=== PATIENT | male | born 1985 | race American Indian/Alaskan Native ===

== ENCOUNTER 2016-05-17 20:02 | Emergency (ER) | payer OTHER ==
[2016-05-17 20:34] VITALS: BP 127/87
[2016-05-17 21:28] LABS: Basophils % (Auto) 0.5 % (0.0-1.8); Eosinophils % (Auto) 3.1 % (0.0-4.3); Hematocrit 42.1 % (35.5-45.6); Hemoglobin 13.8 gm/dl (11.8-15.2); Mean Corpuscular HGB Conc 33 % (32-34); Mean Corpuscular Hemoglobin 30 pg (28-32); Mean Corpuscular Volume 90 fl (84-94); Platelet Count 297 K/mm3 (140-440); Red Blood Count 4.66 M/mm3 (3.65-5.03); Red Cell Distribution Width 13.5 % (13.2-15.2); White Blood Count 8.2 K/mm3 (4.5-11.0)
[2016-05-17 21:46] LABS: Anion Gap 16 mmol/L; Blood Urea Nitrogen 9 mg/dL (9-20); Calcium 8.8 mg/dL (8.4-10.2); Carbon Dioxide 27 mmol/L (22-30); Chloride 100.9 mmol/L (98-107); Glucose 79 mg/dL (75-100); Potassium 4.2 mmol/L (3.6-5.0); Sodium 140 mmol/L (137-145)
[2016-05-18] MEDS ORDERED: TORADOL IM ONE (00:42)
[2016-05-18] MEDS ORDERED: TYLENOL PO ONE (00:42)
--- NOTE | 2016-05-18 00:44 | Emergency Department Report ---
ED General Adult HPI - General Chief complaint: Chest Pain Stated complaint: CP/BACK PAIN/L ARM NUMBNESS Time Seen by Provider: 05/18/16 00:34 Source: patient, RN notes reviewed, old records reviewed Mode of arrival: Ambulatory Limitations: No Limitations - History of Present Illness Initial comments: This is a 30-year-old male. He is previously unknown to me. Does not have a primary care doctor. He presents to the ER complaining of chest pain and back pain. The chest pain is on the bilateral anterior chest, and involves the back. It has been present for 2-1/2 months. It increases with palpation and range of motion, and decreases with rest. He does a lot of heavy lifting for work. There is no vomiting or diaphoresis. Patient denies change in exercise tolerance. There is no lower extremity pain or swelling. No history of cocaine use. No recent trips greater than 4 hours. No recent hospitalizations. -: Gradual, week(s) Location: chest, back Quality: aching Consistency: intermittent Improves with: rest Worsens with: movement Associated Symptoms: chest pain - Related Data Previous Rx's Medication Instructions Recorded Last Taken Type Diclofenac Dr [Brayodn Pelaez] 75 mg PO Q12H #30 tablet 06/19/14 Unknown Rx ALBUTEROL Inhaler [ProAir HFA 2 puff IH QID PRN #1 inhalation 02/09/15 Unknown Rx Inhaler] Acetamin/Codeine 120-12Mg/5 ml 5 ml PO TID PRN #30 ml 02/09/15 Unknown Rx [Tylenol/Codeine] Azithromycin [Zithromax Z-DANETTE] 250 mg PO DAILY #1 pack 02/09/15 Unknown Rx Ibuprofen [Motrin] 800 mg PO Q8HR PRN #30 tablet 02/09/15 Unknown Rx Prednisone [predniSONE 10 mg 10 mg PO .TAPER #1 tab.ds.pk 02/09/15 Unknown Rx (6-Day Pack, 21 Tabs)] Ibuprofen [Motrin] 600 mg PO Q6H PRN #20 tablet 07/15/15 Unknown Rx methOCARBAMOL [Robaxin TAB] 500 mg PO BID PRN #14 tab 07/15/15 Unknown Rx traMADol [Ultram 50 MG tab] 50 mg PO Q6HR PRN #15 tablet 09/23/15 Unknown Rx Ketorolac [Toradol] 10 mg PO Q6H PRN #20 tablet 05/18/16 Unknown Rx Allergies Allergy/AdvReac Type Severity Reaction Status Date / Time No Known Allergies Allergy Verified 06/19/14 18:14 ED Review of Systems ROS: Stated complaint: CP/BACK PAIN/L ARM NUMBNESS Other details as noted in HPI Constitutional: denies: fever ENT: denies: dental pain, epistaxis, congestion Respiratory: see HPI Cardiovascular: chest pain Gastrointestinal: denies: vomiting Genitourinary: as per HPI Musculoskeletal: as per HPI, back pain Skin: denies: lesions Neurological: denies: weakness Psychiatric: as per HPI ED Past Medical Hx - Past Medical History Hx Asthma: Yes Additional medical history: chronic back pain per pt. heart palpitations - Surgical History Additional Surgical History: HERNIA REPAIR. TONSILLECTOMY AND NASAL SURGERY - Social History Smoking Status: Current Every Day Smoker Substance Use Type: None - Medications Home Medications: Home Medications Medication Instructions Recorded Confirmed Last Taken Type Diclofenac Dr [Voltaren Dr] 75 mg PO Q12H #30 tablet 06/19/14 Unknown Rx ALBUTEROL Inhaler [ProAir HFA 2 puff IH QID PRN #1 inhalation 02/09/15 Unknown Rx Inhaler] Acetamin/Codeine 120-12Mg/5 ml 5 ml PO TID PRN #30 ml 02/09/15 Unknown Rx [Tylenol/Codeine] Azithromycin [Zithromax Z-DANETTE] 250 mg PO DAILY #1 pack 02/09/15 Unknown Rx Ibuprofen [Motrin] 800 mg PO Q8HR PRN #30 tablet 02/09/15 Unknown Rx Prednisone [predniSONE 10 mg 10 mg PO .TAPER #1 tab.ds.pk 02/09/15 Unknown Rx (6-Day Pack, 21 Tabs)] Ibuprofen [Motrin] 600 mg PO Q6H PRN #20 tablet 07/15/15 Unknown Rx methOCARBAMOL [Robaxin TAB] 500 mg PO BID PRN #14 tab 07/15/15 Unknown Rx traMADol [Ultram 50 MG tab] 50 mg PO Q6HR PRN #15 tablet 09/23/15 Unknown Rx Ketorolac [Toradol] 10 mg PO Q6H PRN #20 tablet 05/18/16 Unknown Rx ED Physical Exam - General Limitations: No Limitations, Other (patient in no distress, noted to be playing on a cellular phone prior to my evaluation.) General appearance: alert, in no apparent distress - Head Head exam: Present: atraumatic, normocephalic - Eye Eye exam: Present: normal appearance, EOMI. Absent: nystagmus - ENT ENT exam: Present: normal exam, normal orophraynx, mucous membranes moist, normal external ear exam - Neck Neck exam: Present: normal inspection, full ROM. Absent: tenderness, meningismus - Respiratory Respiratory exam: Present: normal lung sounds bilaterally, chest wall tenderness. Absent: respiratory distress, wheezes, rales, rhonchi, stridor - Cardiovascular Cardiovascular Exam: Present: regular rate, normal rhythm, normal heart sounds. Absent: bradycardia, tachycardia, irregular rhythm, systolic murmur, diastolic murmur, rubs, gallop - GI/Abdominal GI/Abdominal exam: Present: soft, normal bowel sounds. Absent: distended, tenderness, guarding, rebound, rigid, pulsatile mass - Rectal Rectal exam: Present: deferred - Extremities Exam Extremities exam: Present: normal inspection, full ROM, normal capillary refill. Absent: tenderness, pedal edema, joint swelling, calf tenderness - Back Exam Back exam: Present: normal inspection, full ROM, paraspinal tenderness - Neurological Exam Neurological exam: Present: alert, oriented X3, normal gait, other (Extraocular movements intact. Tongue midline. No facial droop. Facial sensation intact to light touch in the V1, V2, V3 distribution bilaterally. 5 and 5 strength in 4 extremities.. Sensation is intact to light touch in 4 extremities.). Absent : motor sensory deficit - Psychiatric Psychiatric exam: Present: normal affect, normal mood - Skin Skin exam: Present: warm, dry, intact, normal color. Absent: rash ED Course Vital Signs 05/17/16 05/18/16 05/18/16 20:31 01:01 01:02 Temperature 98.9 F Pulse Rate 65 Respiratory 20 16 16 Rate Blood Pressure 127/87 O2 Sat by Pulse 100 Oximetry - Reevaluation(s) Reevaluation #1: 05/18/16 00:58 Differential diagnosis: Costochondritis, pneumonia, GERD, reflux, myositis, pericarditis Pneumonia, Assessment and plan: 30-year-old male with exquisitely reproducible chest wall pain in context of heavy lifting that has been present for weeks. No pulmonary embolus or DVT risk factors, low risk by well's criteria, perc negative. Low risk by ERIN score, low risk by Boggs's score, symptoms have been present for greater than 8 hours, so as per the [employer] critical policy, myocardial infarction may be excluded with 1 set of cardiac enzymes. He felt improved at the Center medical therapy. He will be discharged with symptomatic therapy. Return precautions are reviewed. History and physical do not suggest pneumonia, and given his negative troponin, I think pericarditis and myocarditis are very unlikely. ED Medical Decision Making - Lab Data Result diagrams: 05/17/16 21:11 05/17/16 21:11 Vital Signs - 24 hr 05/17/16 20:31 Temperature 98.9 F Pulse Rate 65 Respiratory 20 Rate Blood Pressure 127/87 O2 Sat by Pulse 100 Oximetry Laboratory Results - last 24 hr 05/17/16 05/17/16 21:11 21:11 WBC 8.2 RBC 4.66 Hgb 13.8 Hct 42.1 MCV 90 MCH 30 MCHC 33 RDW 13.5 Plt Count 297 Lymph % (Auto) 51.9 H [place] % (Auto) 5.0 Eos % (Auto) 3.1 Baso % (Auto) 0.5 Lymph # 4.3 [place] # 0.4 Eos # 0.3 Baso # 0.0 Seg Neutrophils % 39.5 L Seg Neutrophils # 3.2 Sodium 140 Potassium 4.2 Chloride 100.9 Carbon Dioxide 27 Anion Gap 16 BUN 9 Creatinine 0.9 Estimated GFR > 60 BUN/Creatinine Ratio 10.00 Glucose 79 Calcium 8.8 Troponin T < 0.010 - EKG Data When compared to previous EKG there are: no significant change Interpretation: no acute changes 05/18/16 01:00 sinus bradycardia, 56 bpm, normal intervals, normal axis, not morphologically consistent with STEMI, appears unchanged when compared to prior EKG from September 2015. - Radiology Data Radiology results: image reviewed interpreted by me: X-ray chest negative for acute disease. Critical care attestation.: If time is entered above; I have spent that time in minutes in the direct care of this critically ill patient, excluding procedure time. ED Disposition Clinical Impression: Chest wall pain Disposition: DISCHARGED TO HOME OR SELFCARE Is pt being admited?: No Does the pt Need Aspirin: No Condition: Stable Instructions: Costochondritis (ED) Additional Instructions: Take the pain medication as directed. If taking a pain medication, do not combine it with other anti-inflammatory medications. X-ray was initially interpreted by the ER physician as being negative. However , a final interpretation will be rendered by the radiologist in the morning. Therefore, please have a primary care doctor contact medical records department to ascertain if there are any disparities in the chest x-ray interpretation. Follow-up with the primary care doctor or museum specialist within the next week. Rest and avoid heavy lifting. Return to the ER right away with new pain , worsened pain, migration of pain, fevers or chills, intractable nausea or vomiting, inability to tolerate liquid feeds. Prescriptions: Ketorolac [Toradol] 10 mg PO Q6H PRN #20 tablet PRN Reason: Pain Referrals: PRIMARY CARE, [Primary Care Provider] - 3-5 Days GEORGE CORTÉS MD [Staff Physician] - 3-5 Days BRENT SLATER MD [Staff Physician] - 3-5 Days
--- NOTE | 2016-05-18 07:37 | XRay Report ---
CHEST 2 VIEWS INDICATION: Shortness of breath. Sharp intermittent chest pain, radiating to left arm for 2 months. Smoker, asthma, bronchitis, heart palpitations. COMPARISON: 09/23/2015. FINDINGS: PA and lateral chest radiographs demonstrate normal cardiomediastinal silhouette. Clear, well-expanded lungs. Intact bones. CONCLUSION: No acute disease in the chest. Thank you for the opportunity to participate in this patient's care.
== END 2016-05-18 01:09 | disposition home or self-care (01) ==
LOC: ED 20:02
DX: R07.89 Other chest pain (principal); G89.29 Other chronic pain; F17.200 Nicotine dependence, unspecified, uncomplicated
CPT/HCPCS: 36415; 71020; 80048; 84484; 85025; 93005; 93010; 96372; 99284; J1885

== ENCOUNTER 2016-08-09 14:00 | Emergency (ER) | payer SELFPAY ==
[2016-08-09 14:16] VITALS: BP 100/66
[2016-08-09] MEDS ORDERED: MOTRIN PO ONE (15:38)
--- NOTE | 2016-08-09 16:30 | XRay Report ---
LUMBAR SPINE THREE VIEWS: 08/09/16 14:00:00 CLINICAL: Lumbar spine tenderness. FINDINGS: Normal vertebral body height, alignment and disk spaces. The pedicles are intact. No fracture. Normal soft tissues. IMPRESSION: Normal.
== END 2016-08-09 16:47 | disposition home or self-care (01) ==
LOC: ED 14:00
DX: S39.012A Strain of muscle, fascia and tendon of lower back, initial encounter (principal); X58.XXXA Exposure to other specified factors, initial encounter; Y93.9 Activity, unspecified; Y92.89 Other specified places as the place of occurrence of the external cause; Y99.9 Unspecified external cause status
CPT/HCPCS: 72100; 99283

== ENCOUNTER 2016-12-08 22:04 | Emergency (ER) | payer SELFPAY ==
[2016-12-09] MEDS ORDERED: MOTRIN PO ONE (03:10)
--- NOTE | 2016-12-09 03:14 | Emergency Department Report ---
ED ENT HPI - General Chief complaint: Dental/Oral Stated complaint: MOUTH PAIN Time Seen by Provider: 12/09/16 02:41 Source: patient Mode of arrival: Ambulatory Limitations: No Limitations - History of Present Illness Initial comments: 31-year-old male presents with complaint of molar toothache for 2 weeks. Patient states he missed his dental clinic appointment today. Visible large cavity in tooth. Denies any pus or blood drainage from mouth, speaking in full sentences. No facial swelling denies fever chills no trismus noted drooling. MD complaint: tooth pain Onset/Timin -: week(s) Location: tooth # (17) Severity: mild Quality: aching Consistency: constant Worsens with: none Context- Dental: history of dental caries, poor dental care Associated Symptoms: toothache - Related Data Previous Rx's Medication Instructions Recorded Last Taken Type Diclofenac Dr [Voltaren Dr] 75 mg PO Q12H #30 tablet 06/19/14 Unknown Rx ALBUTEROL Inhaler [ProAir HFA 2 puff IH QID PRN #1 inhalation 02/09/15 Unknown Rx Inhaler] Acetamin/Codeine 120-12Mg/5 ml 5 ml PO TID PRN #30 ml 02/09/15 Unknown Rx [Tylenol/Codeine] Azithromycin [Zithromax Z-DANETTE] 250 mg PO DAILY #1 pack 02/09/15 Unknown Rx Prednisone [predniSONE 10 mg 10 mg PO .TAPER #1 tab.ds.pk 02/09/15 Unknown Rx (6-Day Pack, 21 Tabs)] Ibuprofen [Motrin] 600 mg PO Q6H PRN #20 tablet 07/15/15 Unknown Rx methOCARBAMOL [Robaxin TAB] 500 mg PO BID PRN #14 tab 07/15/15 Unknown Rx traMADol [Ultram 50 MG tab] 50 mg PO Q6HR PRN #15 tablet 09/23/15 Unknown Rx Ketorolac [Toradol] 10 mg PO Q6H PRN #20 tablet 05/18/16 Unknown Rx Ibuprofen [Motrin 600 MG tab] 600 mg PO Q8H PRN 7 Days 08/09/16 Unknown Rx Acetaminophen/Codeine [Tylenol 1 tab PO Q6H PRN #12 tab 12/09/16 Unknown Rx /Codeine # 3 tab] Amoxicillin [Trimox CAP] 500 mg PO Q8H #30 capsule 12/09/16 Unknown Rx Benzocaine [Orajel Liquid 20%] 1 ml MM Q6HR PRN #1 bottle 12/09/16 Unknown Rx Chlorhexidine Mouthwash [Peridex] 15 ml MM BID #1 bottle 12/09/16 Unknown Rx Ibuprofen [Motrin 800 MG tab] 800 mg PO Q8HR PRN #30 tablet 12/09/16 Unknown Rx Allergies Allergy/AdvReac Type Severity Reaction Status Date / Time No Known Allergies Allergy Verified 06/19/14 18:14 ED Dental HPI - General Chief complaint: Dental/Oral Stated complaint: MOUTH PAIN Time Seen by Provider: 12/09/16 02:41 Source: patient Mode of arrival: Ambulatory Limitations: No Limitations - Related Data Previous Rx's Medication Instructions Recorded Last Taken Type Diclofenac Dr [Voltarechavez Dr] 75 mg PO Q12H #30 tablet 06/19/14 Unknown Rx ALBUTEROL Inhaler [ProAir HFA 2 puff IH QID PRN #1 inhalation 02/09/15 Unknown Rx Inhaler] Acetamin/Codeine 120-12Mg/5 ml 5 ml PO TID PRN #30 ml 02/09/15 Unknown Rx [Tylenol/Codeine] Azithromycin [Zithromax Z-DANETTE] 250 mg PO DAILY #1 pack 02/09/15 Unknown Rx Prednisone [predniSONE 10 mg 10 mg PO .TAPER #1 tab.ds.pk 02/09/15 Unknown Rx (6-Day Pack, 21 Tabs)] Ibuprofen [Motrin] 600 mg PO Q6H PRN #20 tablet 07/15/15 Unknown Rx methOCARBAMOL [Robaxin TAB] 500 mg PO BID PRN #14 tab 07/15/15 Unknown Rx traMADol [Ultram 50 MG tab] 50 mg PO Q6HR PRN #15 tablet 09/23/15 Unknown Rx Ketorolac [Toradol] 10 mg PO Q6H PRN #20 tablet 05/18/16 Unknown Rx Ibuprofen [Motrin 600 MG tab] 600 mg PO Q8H PRN 7 Days 08/09/16 Unknown Rx Acetaminophen/Codeine [Tylenol 1 tab PO Q6H PRN #12 tab 12/09/16 Unknown Rx /Codeine # 3 tab] Amoxicillin [Trimox CAP] 500 mg PO Q8H #30 capsule 12/09/16 Unknown Rx Benzocaine [Orajel Liquid 20%] 1 ml MM Q6HR PRN #1 bottle 12/09/16 Unknown Rx Chlorhexidine Mouthwash [Peridex] 15 ml MM BID #1 bottle 12/09/16 Unknown Rx Ibuprofen [Motrin 800 MG tab] 800 mg PO Q8HR PRN #30 tablet 12/09/16 Unknown Rx Allergies Allergy/AdvReac Type Severity Reaction Status Date / Time No Known Allergies Allergy Verified 06/19/14 18:14 ED Review of Systems ROS: Stated complaint: MOUTH PAIN Other details as noted in HPI Constitutional: denies: chills, fever Eyes: denies: eye pain, eye discharge, vision change ENT: dental pain. denies: ear pain, throat pain Respiratory: denies: cough, shortness of breath, wheezing Cardiovascular: denies: chest pain, palpitations Endocrine: no symptoms reported Gastrointestinal: denies: abdominal pain, nausea, diarrhea Genitourinary: denies: urgency, dysuria Musculoskeletal: denies: back pain, joint swelling, arthralgia Skin: denies: rash, lesions Neurological: denies: headache, weakness, paresthesias Psychiatric: denies: anxiety, depression Hematological/Lymphatic: denies: easy bleeding, easy bruising ED Past Medical Hx - Past Medical History Previous Medical History?: Yes Hx Asthma: Yes Additional medical history: chronic back pain per pt. heart palpitations - Surgical History Past Surgical History?: No Additional Surgical History: HERNIA REPAIR. TONSILLECTOMY AND NASAL SURGERY - Social History Smoking Status: Current Some Day Smoker Substance Use Type: None - Medications Home Medications: Home Medications Medication Instructions Recorded Confirmed Last Taken Type Diclofenac Dr [Braydon Pelaez] 75 mg PO Q12H #30 tablet 06/19/14 Unknown Rx ALBUTEROL Inhaler [ProAir HFA 2 puff IH QID PRN #1 inhalation 02/09/15 Unknown Rx Inhaler] Acetamin/Codeine 120-12Mg/5 ml 5 ml PO TID PRN #30 ml 02/09/15 Unknown Rx [Tylenol/Codeine] Azithromycin [Zithromax Z-DANETTE] 250 mg PO DAILY #1 pack 02/09/15 Unknown Rx Prednisone [predniSONE 10 mg 10 mg PO .TAPER #1 tab.ds.pk 02/09/15 Unknown Rx (6-Day Pack, 21 Tabs)] Ibuprofen [Motrin] 600 mg PO Q6H PRN #20 tablet 07/15/15 Unknown Rx methOCARBAMOL [Robaxin TAB] 500 mg PO BID PRN #14 tab 07/15/15 Unknown Rx traMADol [Ultram 50 MG tab] 50 mg PO Q6HR PRN #15 tablet 09/23/15 Unknown Rx Ketorolac [Toradol] 10 mg PO Q6H PRN #20 tablet 05/18/16 Unknown Rx Ibuprofen [Motrin 600 MG tab] 600 mg PO Q8H PRN 7 Days 08/09/16 Unknown Rx Acetaminophen/Codeine [Tylenol 1 tab PO Q6H PRN #12 tab 12/09/16 Unknown Rx /Codeine # 3 tab] Amoxicillin [Trimox CAP] 500 mg PO Q8H #30 capsule 12/09/16 Unknown Rx Benzocaine [Orajel Liquid 20%] 1 ml MM Q6HR PRN #1 bottle 12/09/16 Unknown Rx Chlorhexidine Mouthwash [Peridex] 15 ml MM BID #1 bottle 12/09/16 Unknown Rx Ibuprofen [Motrin 800 MG tab] 800 mg PO Q8HR PRN #30 tablet 12/09/16 Unknown Rx ED Physical Exam - General Limitations: No Limitations General appearance: alert, in no apparent distress - Head Head exam: Present: atraumatic, normocephalic - Eye Eye exam: Present: normal appearance, PERRL, EOMI - ENT ENT exam: Present: mucous membranes moist - Expanded ENT Exam Expanded Teeth exam: Present: dental caries (tooth 17), fractured tooth # (17), dental tenderness # (17) 1 - Dental Tenderness (large dental cavity here) - Neck Neck exam: Present: normal inspection, full ROM - Respiratory Respiratory exam: Present: normal lung sounds bilaterally. Absent: respiratory distress - Cardiovascular Cardiovascular Exam: Present: regular rate, normal rhythm. Absent: systolic murmur, diastolic murmur, rubs, gallop - GI/Abdominal GI/Abdominal exam: Present: soft, normal bowel sounds - Rectal Rectal exam: Present: deferred - Extremities Exam Extremities exam: Present: normal inspection - Back Exam Back exam: Present: normal inspection - Neurological Exam Neurological exam: Present: alert, oriented X3 - Psychiatric Psychiatric exam: Present: normal affect, normal mood - Skin Skin exam: Present: warm, dry, intact, normal color. Absent: rash ED Course Vital Signs 12/08/16 22:35 Temperature 98.7 F Pulse Rate 64 Respiratory 18 Rate Blood Pressure 121/81 O2 Sat by Pulse 100 Oximetry ED Medical Decision Making - Medical Decision Making A/P: dental cavities, toothache, dental abscess 1- Motrin when necessary, amoxicillin ten-day course, Orajel when necessary, Peridex mouthwash daily basis, short course codeine when necessary 2- I provided patient with information for multiple dental clinics to follow up and stressed the importance of dental follow-up as he has multiple cavities that require dental fixation or instrumentation 3- no clinical signs of facial abscess, no Link's angina, no induration or cellulitis of floor of mouth or tongue 4- patient able to tolerate by mouth before discharge 5- no signs of facial infection. Advised patient that if he does not take antibiotics with follow-up with a dentist as soon as possible that a can result in potentially serious or dangerous infection to develop in jaw or face. Patient states that he understood these instructions. I advised patient to return to the ED for any persistent unrelenting nausea or vomiting fever or chills or headaches. Critical care attestation.: If time is entered above; I have spent that time in minutes in the direct care of this critically ill patient, excluding procedure time. ED Disposition Clinical Impression: Dental cavity Disposition: DC-01 TO HOME OR SELFCARE Is pt being admited?: No Does the pt Need Aspirin: No Condition: Stable Instructions: Dental Caries (ED) Prescriptions: Acetaminophen/Codeine [Tylenol /Codeine # 3 tab] 1 tab PO Q6H PRN #12 tab PRN Reason: Toothache Amoxicillin [Trimox CAP] 500 mg PO Q8H #30 capsule Benzocaine [Orajel Liquid 20%] 1 ml MM Q6HR PRN #1 bottle PRN Reason: Toothache Chlorhexidine Mouthwash [Peridex] 15 ml MM BID #1 bottle Ibuprofen [Motrin 800 MG tab] 800 mg PO Q8HR PRN #30 tablet PRN Reason: Pain Referrals: [facility] [Outside] - 3-5 Days Forms: Accompanied Note, Work/School Release Form(ED) Time of Disposition: 03:12
[2016-12-09 03:25] VITALS: BP 106/58
== END 2016-12-09 03:25 | disposition home or self-care (01) ==
LOC: ED 22:04
DX: K02.9 Dental caries, unspecified (principal); J45.909 Unspecified asthma, uncomplicated; G89.29 Other chronic pain; F17.200 Nicotine dependence, unspecified, uncomplicated; Z98.890 Other specified postprocedural states
CPT/HCPCS: 99282

== ENCOUNTER 2017-01-07 22:53 | Emergency (ER) | payer SELFPAY ==
[2017-01-08] MEDS ORDERED: MOTRIN PO ONE (07:25)
--- NOTE | 2017-01-08 07:49 | Emergency Department Report ---
ED ENT HPI - General Chief complaint: Dental/Oral Stated complaint: THROAT PAIN Time Seen by Provider: 01/08/17 07:22 Source: patient Mode of arrival: Ambulatory Limitations: No Limitations - History of Present Illness Initial comments: This is a 31-year-old male nontoxic, well nourished in appearance, no acute signs of distress presents to the ED complaining of right upper dental pain 2 days. He describes pain as aching level of 10 out of 10. Patient denies any trauma to the region. Patient denies any facial swelling, trismus, numbness, tingling, fever, chills, headache, stiff neck, nausea or vomiting. Patient denies any fever or chills. Patient denies any allergies or past medical history. Patient denies following up with a dentist. MD complaint: tooth pain -: Gradual, days(s) (2) Severity: mild Severity scale (0 -10): 10 Quality: aching Consistency: constant Improves with: none Worsens with: none Context- Dental: history of dental caries, poor dental care Associated Symptoms: gum swelling, toothache. denies: fever, cough, pain with swallowing, sore throat, tinnitus, hearing loss, discharge from ear, rhinorrhea - Related Data Previous Rx's Medication Instructions Recorded Last Taken Type Diclofenac Dr [Braydon Pelaez] 75 mg PO Q12H #30 tablet 06/19/14 Unknown Rx ALBUTEROL Inhaler [ProAir HFA 2 puff IH QID PRN #1 inhalation 02/09/15 Unknown Rx Inhaler] Acetamin/Codeine 120-12Mg/5 ml 5 ml PO TID PRN #30 ml 02/09/15 Unknown Rx [Tylenol/Codeine] Azithromycin [Zithromax Z-DANETTE] 250 mg PO DAILY #1 pack 02/09/15 Unknown Rx Prednisone [predniSONE 10 mg 10 mg PO .TAPER #1 tab.ds.pk 02/09/15 Unknown Rx (6-Day Pack, 21 Tabs)] Ibuprofen [Motrin] 600 mg PO Q6H PRN #20 tablet 07/15/15 Unknown Rx methOCARBAMOL [Robaxin TAB] 500 mg PO BID PRN #14 tab 07/15/15 Unknown Rx traMADol [Ultram 50 MG tab] 50 mg PO Q6HR PRN #15 tablet 09/23/15 Unknown Rx Ketorolac [Toradol] 10 mg PO Q6H PRN #20 tablet 05/18/16 Unknown Rx Ibuprofen [Motrin 600 MG tab] 600 mg PO Q8H PRN 7 Days 08/09/16 Unknown Rx Acetaminophen/Codeine [Tylenol 1 tab PO Q6H PRN #12 tab 12/09/16 Unknown Rx /Codeine # 3 tab] Amoxicillin [Trimox CAP] 500 mg PO Q8H #30 capsule 12/09/16 Unknown Rx Benzocaine [Orajel Liquid 20%] 1 ml MM Q6HR PRN #1 bottle 12/09/16 Unknown Rx Chlorhexidine Mouthwash [Peridex] 15 ml MM BID #1 bottle 12/09/16 Unknown Rx Ibuprofen [Motrin 800 MG tab] 800 mg PO Q8HR PRN #30 tablet 12/09/16 Unknown Rx Amoxicillin/Potassium Clav 1 each PO BID #20 tablet 01/08/17 Unknown Rx [Augmentin 875-125 Tablet] traMADol [Ultram] 50 mg PO Q6HR PRN #12 tablet 01/08/17 Unknown Rx Allergies Allergy/AdvReac Type Severity Reaction Status Date / Time No Known Allergies Allergy Verified 06/19/14 18:14 ED Dental HPI - General Chief complaint: Dental/Oral Stated complaint: THROAT PAIN Time Seen by Provider: 01/08/17 07:22 Source: patient Mode of arrival: Ambulatory Limitations: No Limitations - Related Data Previous Rx's Medication Instructions Recorded Last Taken Type Diclofenac Dr [Voltaren Dr] 75 mg PO Q12H #30 tablet 06/19/14 Unknown Rx ALBUTEROL Inhaler [ProAir HFA 2 puff IH QID PRN #1 inhalation 02/09/15 Unknown Rx Inhaler] Acetamin/Codeine 120-12Mg/5 ml 5 ml PO TID PRN #30 ml 02/09/15 Unknown Rx [Tylenol/Codeine] Azithromycin [Zithromax Z-DANETTE] 250 mg PO DAILY #1 pack 02/09/15 Unknown Rx Prednisone [predniSONE 10 mg 10 mg PO .TAPER #1 tab.ds.pk 02/09/15 Unknown Rx (6-Day Pack, 21 Tabs)] Ibuprofen [Motrin] 600 mg PO Q6H PRN #20 tablet 07/15/15 Unknown Rx methOCARBAMOL [Robaxin TAB] 500 mg PO BID PRN #14 tab 07/15/15 Unknown Rx traMADol [Ultram 50 MG tab] 50 mg PO Q6HR PRN #15 tablet 09/23/15 Unknown Rx Ketorolac [Toradol] 10 mg PO Q6H PRN #20 tablet 05/18/16 Unknown Rx Ibuprofen [Motrin 600 MG tab] 600 mg PO Q8H PRN 7 Days 08/09/16 Unknown Rx Acetaminophen/Codeine [Tylenol 1 tab PO Q6H PRN #12 tab 12/09/16 Unknown Rx /Codeine # 3 tab] Amoxicillin [Trimox CAP] 500 mg PO Q8H #30 capsule 12/09/16 Unknown Rx Benzocaine [Orajel Liquid 20%] 1 ml MM Q6HR PRN #1 bottle 12/09/16 Unknown Rx Chlorhexidine Mouthwash [Peridex] 15 ml MM BID #1 bottle 12/09/16 Unknown Rx Ibuprofen [Motrin 800 MG tab] 800 mg PO Q8HR PRN #30 tablet 12/09/16 Unknown Rx Amoxicillin/Potassium Clav 1 each PO BID #20 tablet 01/08/17 Unknown Rx [Augmentin 875-125 Tablet] traMADol [Ultram] 50 mg PO Q6HR PRN #12 tablet 01/08/17 Unknown Rx Allergies Allergy/AdvReac Type Severity Reaction Status Date / Time No Known Allergies Allergy Verified 06/19/14 18:14 ED Review of Systems ROS: Stated complaint: THROAT PAIN Other details as noted in HPI Constitutional: denies: chills, fever Eyes: denies: eye pain, eye discharge, vision change ENT: dental pain. denies: ear pain, throat pain Respiratory: denies: cough, shortness of breath, wheezing Cardiovascular: denies: chest pain, palpitations Endocrine: no symptoms reported Gastrointestinal: denies: abdominal pain, nausea, diarrhea Genitourinary: denies: urgency, dysuria Musculoskeletal: denies: back pain, joint swelling, arthralgia Skin: denies: rash, lesions Neurological: denies: headache, weakness, paresthesias Psychiatric: denies: anxiety, depression Hematological/Lymphatic: denies: easy bleeding, easy bruising ED Past Medical Hx - Past Medical History Previous Medical History?: Yes Hx Asthma: Yes Additional medical history: chronic back pain per pt. heart palpitations - Surgical History Past Surgical History?: Yes Additional Surgical History: HERNIA REPAIR. TONSILLECTOMY AND NASAL SURGERY - Social History Smoking Status: Current Every Day Smoker Substance Use Type: Alcohol - Medications Home Medications: Home Medications Medication Instructions Recorded Confirmed Last Taken Type Diclofenac Dr [Braydon Dr] 75 mg PO Q12H #30 tablet 06/19/14 Unknown Rx ALBUTEROL Inhaler [ProAir HFA 2 puff IH QID PRN #1 inhalation 02/09/15 Unknown Rx Inhaler] Acetamin/Codeine 120-12Mg/5 ml 5 ml PO TID PRN #30 ml 02/09/15 Unknown Rx [Tylenol/Codeine] Azithromycin [Zithromax Z-DANETTE] 250 mg PO DAILY #1 pack 02/09/15 Unknown Rx Prednisone [predniSONE 10 mg 10 mg PO .TAPER #1 tab.ds.pk 02/09/15 Unknown Rx (6-Day Pack, 21 Tabs)] Ibuprofen [Motrin] 600 mg PO Q6H PRN #20 tablet 07/15/15 Unknown Rx methOCARBAMOL [Robaxin TAB] 500 mg PO BID PRN #14 tab 07/15/15 Unknown Rx traMADol [Ultram 50 MG tab] 50 mg PO Q6HR PRN #15 tablet 09/23/15 Unknown Rx Ketorolac [Toradol] 10 mg PO Q6H PRN #20 tablet 05/18/16 Unknown Rx Ibuprofen [Motrin 600 MG tab] 600 mg PO Q8H PRN 7 Days 08/09/16 Unknown Rx Acetaminophen/Codeine [Tylenol 1 tab PO Q6H PRN #12 tab 12/09/16 Unknown Rx /Codeine # 3 tab] Amoxicillin [Trimox CAP] 500 mg PO Q8H #30 capsule 12/09/16 Unknown Rx Benzocaine [Orajel Liquid 20%] 1 ml MM Q6HR PRN #1 bottle 12/09/16 Unknown Rx Chlorhexidine Mouthwash [Peridex] 15 ml MM BID #1 bottle 12/09/16 Unknown Rx Ibuprofen [Motrin 800 MG tab] 800 mg PO Q8HR PRN #30 tablet 12/09/16 Unknown Rx Amoxicillin/Potassium Clav 1 each PO BID #20 tablet 01/08/17 Unknown Rx [Augmentin 875-125 Tablet] traMADol [Ultram] 50 mg PO Q6HR PRN #12 tablet 01/08/17 Unknown Rx ED Physical Exam - General Limitations: No Limitations General appearance: alert, in no apparent distress - Head Head exam: Present: atraumatic, normocephalic, normal inspection - Eye Eye exam: Present: normal appearance, PERRL, EOMI. Absent: scleral icterus, conjunctival injection, nystagmus, periorbital swelling, periorbital tenderness Pupils: Present: normal accommodation - ENT ENT exam: Present: normal orophraynx, mucous membranes moist, TM's normal bilaterally, normal external ear exam - Expanded ENT Exam Expanded Ear exam: Present: normal external inspection Mouth exam: Present: normal external inspection, tongue normal. Absent: drooling, trismus, muffled voice, tongue elevation, laceration Teeth exam: Present: dental caries, dental tenderness # (32), gingival enlargement, other (No facial swelling. No abscess. No induration or flutance note.d ) 1 - Dental Tenderness Throat exam: Positive: normal inspection - Neck Neck exam: Present: normal inspection, full ROM. Absent: tenderness, meningismus, lymphadenopathy, thyromegaly - Respiratory Respiratory exam: Present: normal lung sounds bilaterally. Absent: respiratory distress, wheezes, rales, rhonchi, stridor, chest wall tenderness, accessory muscle use, decreased breath sounds, prolonged expiratory - Cardiovascular Cardiovascular Exam: Present: regular rate, normal rhythm, normal heart sounds. Absent: systolic murmur, diastolic murmur, rubs, gallop - GI/Abdominal GI/Abdominal exam: Present: soft, normal bowel sounds - Rectal Rectal exam: Present: deferred - Extremities Exam Extremities exam: Present: normal inspection, full ROM, normal capillary refill. Absent: tenderness, pedal edema, joint swelling, calf tenderness - Back Exam Back exam: Present: normal inspection, full ROM. Absent: tenderness, CVA tenderness (R), CVA tenderness (L), muscle spasm, paraspinal tenderness, vertebral tenderness, rash noted - Neurological Exam Neurological exam: Present: alert, oriented X3, CN II-XII intact, normal gait, reflexes normal - Psychiatric Psychiatric exam: Present: normal affect, normal mood - Skin Skin exam: Present: warm, dry, intact, normal color. Absent: rash ED Course Vital Signs 01/07/17 01/07/17 01/08/17 23:03 23:05 07:40 Temperature 98.2 F 98.2 F Pulse Rate 80 77 Respiratory 18 17 18 Rate Blood Pressure 121/76 121/76 O2 Sat by Pulse 99 99 Oximetry - Reevaluation(s) Reevaluation #1: 01/08/17 07:48 Patient is speaking in full sentences with no signs of distress noted. ED Medical Decision Making - Medical Decision Making 31-year-old male that presents with gingivitis and dental tenderness. There is no swelling or abscess noted. Patient was instructed to follow-up with a dentist in 24 hours for a evaluation for possible dental extraction. Patient was instructed that if he does not take care of his tooth that this may develop an abscess. Patient treated with Augmentin and Ultram. He was instructed not to operate any machinery while taking Ultram due to the sedation and drowsiness of the drug. At time time of discharge, the patient does not seem toxic or ill in appearance. No acute signs of distress noted. Patient agrees to discharge treatment plan of care. No further questions noted by the patient. Critical care attestation.: If time is entered above; I have spent that time in minutes in the direct care of this critically ill patient, excluding procedure time. ED Disposition Clinical Impression: Dental caries, Gingivitis Disposition: DC-01 TO HOME OR SELFCARE Is pt being admited?: No Does the pt Need Aspirin: No Condition: Stable Instructions: Gingivitis (ED), Amoxicillin/Clavulanate Potassium (By mouth), Tramadol (By mouth) Additional Instructions: Follow-up with a dentist in 24 hours for a possible evaluation for a possible dental extraction if he did not follow up this may develop into an abscess and if a abscess formation or any symptoms worsening return to emergency room as soon as possible. Do not operating any machinery while taking Ultram due to sedation/drowsiness Prescriptions: Amoxicillin/Potassium Clav [Augmentin 875-125 Tablet] 1 each PO BID #20 tablet traMADol [Ultram] 50 mg PO Q6HR PRN #12 tablet PRN Reason: Pain Referrals: LIDA RAMOS MD [Primary Care Provider] - 3-5 Days REAGAN DAS MD [Staff Physician] - 3-5 Days [facility] [Outside] - 24 Hours Forms: Work/School Release Form(ED)
[2017-01-08 08:21] VITALS: BP 120/72
== END 2017-01-08 08:21 | disposition home or self-care (01) ==
LOC: ED 22:53
DX: K02.9 Dental caries, unspecified (principal); K05.10 Chronic gingivitis, plaque induced; F17.210 Nicotine dependence, cigarettes, uncomplicated
CPT/HCPCS: 87116; 87430; 99282

== ENCOUNTER 2017-03-24 11:14 | Emergency (ER) | payer SELFPAY ==
[2017-03-24 11:27] VITALS: BP 105/65
--- NOTE | 2017-03-24 11:58 | XRay Report ---
Right knee 3 views: History: Right knee pain. Findings: No bony or articular abnormality. No fracture, dislocation or soft tissue calcification. Impression: Essentially negative right knee.
--- NOTE | 2017-03-24 13:43 | Emergency Department Report ---
ED Extremity Problem HPI - General Chief complaint: Extremity Injury, Lower Stated complaint: RT KNEE PAIN/BACK PAIN Time Seen by Provider: 03/24/17 12:59 Source: patient Mode of arrival: Ambulatory Limitations: No Limitations - History of Present Illness Initial comments: 31-year-old male past medical history none presents with complaint of several days of right knee pain. Patient denies any direct trauma and no recent falls. Denies fevers or chills. States he has had mild right knee swelling. Patient is ambulatory without assistance. Denies any paresthesias or any diffuse body aches. Patient states he took some Tylenol at home with minimal relief of his pain. MD Complaint: extremity pain, extremity swelling, joint swelling Onset/Timin -: days(s) Location: right, upper extremity -: Yes arthralgia Severity scale (0 -10): 6 Quality: aching Consistency: intermittent Improves with: nothing Associated Symptoms: denies other symptoms - Related Data Previous Rx's Medication Instructions Recorded Last Taken Type Diclofenac Dr [Braydon Pelaez] 75 mg PO Q12H #30 tablet 06/19/14 Unknown Rx ALBUTEROL Inhaler [ProAir HFA 2 puff IH QID PRN #1 inhalation 02/09/15 Unknown Rx Inhaler] Acetamin/Codeine 120-12Mg/5 ml 5 ml PO TID PRN #30 ml 02/09/15 Unknown Rx [Tylenol/Codeine] Azithromycin [Zithromax Z-DANETTE] 250 mg PO DAILY #1 pack 02/09/15 Unknown Rx Prednisone [predniSONE 10 mg 10 mg PO .TAPER #1 tab.ds.pk 02/09/15 Unknown Rx (6-Day Pack, 21 Tabs)] Ibuprofen [Motrin] 600 mg PO Q6H PRN #20 tablet 07/15/15 Unknown Rx methOCARBAMOL [Robaxin TAB] 500 mg PO BID PRN #14 tab 07/15/15 Unknown Rx traMADol [Ultram 50 MG tab] 50 mg PO Q6HR PRN #15 tablet 09/23/15 Unknown Rx Ketorolac [Toradol] 10 mg PO Q6H PRN #20 tablet 05/18/16 Unknown Rx Ibuprofen [Motrin 600 MG tab] 600 mg PO Q8H PRN 7 Days tablet 08/09/16 Unknown Rx Acetaminophen/Codeine [Tylenol 1 tab PO Q6H PRN #12 tab 12/09/16 Unknown Rx /Codeine # 3 tab] Amoxicillin [Trimox CAP] 500 mg PO Q8H #30 capsule 12/09/16 Unknown Rx Benzocaine [Orajel Liquid 20%] 1 ml MM Q6HR PRN #1 bottle 12/09/16 Unknown Rx Chlorhexidine Mouthwash [Peridex] 15 ml MM BID #1 bottle 12/09/16 Unknown Rx Ibuprofen [Motrin 800 MG tab] 800 mg PO Q8HR PRN #30 tablet 12/09/16 Unknown Rx Amoxicillin/Potassium Clav 1 each PO BID #20 tablet 01/08/17 Unknown Rx [Augmentin 875-125 Tablet] traMADol [Ultram] 50 mg PO Q6HR PRN #12 tablet 01/08/17 Unknown Rx Naproxen 500 mg PO BID PRN #30 tablet 03/24/17 Unknown Rx Allergies Allergy/AdvReac Type Severity Reaction Status Date / Time No Known Allergies Allergy Verified 06/19/14 18:14 ED Review of Systems ROS: Stated complaint: RT KNEE PAIN/BACK PAIN Other details as noted in HPI Constitutional: denies: chills, fever Eyes: denies: eye pain, eye discharge, vision change ENT: denies: ear pain, throat pain Respiratory: denies: cough, shortness of breath, wheezing Cardiovascular: denies: chest pain, palpitations Endocrine: no symptoms reported Gastrointestinal: denies: abdominal pain, nausea, diarrhea Genitourinary: denies: urgency, dysuria Musculoskeletal: arthralgia (right knee pain). denies: back pain, joint swelling Skin: denies: rash, lesions Neurological: denies: headache, weakness, paresthesias Psychiatric: denies: anxiety, depression Hematological/Lymphatic: denies: easy bleeding, easy bruising ED Past Medical Hx - Past Medical History Previous Medical History?: Yes Hx Asthma: Yes Additional medical history: chronic back pain per pt. heart palpitations - Surgical History Past Surgical History?: Yes Additional Surgical History: HERNIA REPAIR. TONSILLECTOMY AND NASAL SURGERY - Social History Smoking Status: Current Every Day Smoker Substance Use Type: Alcohol, Marijuana, Non Opiate Pain - Medications Home Medications: Home Medications Medication Instructions Recorded Confirmed Last Taken Type Diclofenac Dr [Adolpharechavez Pelaez] 75 mg PO Q12H #30 tablet 06/19/14 Unknown Rx ALBUTEROL Inhaler [ProAir HFA 2 puff IH QID PRN #1 inhalation 02/09/15 Unknown Rx Inhaler] Acetamin/Codeine 120-12Mg/5 ml 5 ml PO TID PRN #30 ml 02/09/15 Unknown Rx [Tylenol/Codeine] Azithromycin [Zithromax Z-DANETTE] 250 mg PO DAILY #1 pack 02/09/15 Unknown Rx Prednisone [predniSONE 10 mg 10 mg PO .TAPER #1 tab.ds.pk 02/09/15 Unknown Rx (6-Day Pack, 21 Tabs)] Ibuprofen [Motrin] 600 mg PO Q6H PRN #20 tablet 07/15/15 Unknown Rx methOCARBAMOL [Robaxin TAB] 500 mg PO BID PRN #14 tab 07/15/15 Unknown Rx traMADol [Ultram 50 MG tab] 50 mg PO Q6HR PRN #15 tablet 09/23/15 Unknown Rx Ketorolac [Toradol] 10 mg PO Q6H PRN #20 tablet 05/18/16 Unknown Rx Ibuprofen [Motrin 600 MG tab] 600 mg PO Q8H PRN 7 Days tablet 08/09/16 Unknown Rx Acetaminophen/Codeine [Tylenol 1 tab PO Q6H PRN #12 tab 12/09/16 Unknown Rx /Codeine # 3 tab] Amoxicillin [Trimox CAP] 500 mg PO Q8H #30 capsule 12/09/16 Unknown Rx Benzocaine [Orajel Liquid 20%] 1 ml MM Q6HR PRN #1 bottle 12/09/16 Unknown Rx Chlorhexidine Mouthwash [Peridex] 15 ml MM BID #1 bottle 12/09/16 Unknown Rx Ibuprofen [Motrin 800 MG tab] 800 mg PO Q8HR PRN #30 tablet 12/09/16 Unknown Rx Amoxicillin/Potassium Clav 1 each PO BID #20 tablet 01/08/17 Unknown Rx [Augmentin 875-125 Tablet] traMADol [Ultram] 50 mg PO Q6HR PRN #12 tablet 01/08/17 Unknown Rx Naproxen 500 mg PO BID PRN #30 tablet 03/24/17 Unknown Rx ED Physical Exam - General Limitations: No Limitations General appearance: alert, in no apparent distress - Head Head exam: Present: atraumatic, normocephalic - Eye Eye exam: Present: normal appearance, PERRL, EOMI - ENT ENT exam: Present: mucous membranes moist - Neck Neck exam: Present: normal inspection - Respiratory Respiratory exam: Present: normal lung sounds bilaterally. Absent: respiratory distress - Cardiovascular Cardiovascular Exam: Present: regular rate, normal rhythm. Absent: systolic murmur, diastolic murmur, rubs, gallop - GI/Abdominal GI/Abdominal exam: Present: soft, normal bowel sounds - Rectal Rectal exam: Present: deferred - Extremities Exam Extremities exam: Present: normal inspection - Expanded Lower Extremity Exam Right Hip exam: Present: normal inspection, full ROM Upper Leg exam: Present: normal inspection, full ROM Knee exam: Present: normal inspection, full ROM (right knee flexion and extension intact) Lower Leg exam: Present: normal inspection, full ROM Ankle exam: Present: normal inspection, full ROM Foot/Toe exam: Present: normal inspection, full ROM Neuro vascular tendon exam: Present: no vascular compromise (distal dorsalis pedis and posterior tibial pulses are intact) 1 - Minimal to no swelling on inspection, no cellulitis. - Back Exam Back exam: Present: normal inspection - Neurological Exam Neurological exam: Present: alert, oriented X3, CN II-XII intact, normal gait - Psychiatric Psychiatric exam: Present: normal affect, normal mood - Skin Skin exam: Present: warm, dry, intact, normal color. Absent: rash ED Course Vital Signs 03/24/17 11:24 Temperature 98.4 F Pulse Rate 69 Respiratory 18 Rate Blood Pressure 105/65 O2 Sat by Pulse 97 Oximetry ED Medical Decision Making - Medical Decision Making A/P: Musculoskeletal right knee pain 1-x-ray of right knee unremarkable. No clinical signs of infection or septic joint. Course of naproxen when necessary 2-follow-up with primary care and orthopedics 3-Eulalio wrap, RICE therapy 4- patient ambulatory without assistance Critical care attestation.: If time is entered above; I have spent that time in minutes in the direct care of this critically ill patient, excluding procedure time. ED Disposition Clinical Impression: Right knee pain Qualifiers: Chronicity: acute Qualified Code(s): M25.561 - Pain in right knee Disposition: DC-01 TO HOME OR SELFCARE Is pt being admited?: No Does the pt Need Aspirin: No Condition: Stable Instructions: Arthralgia (ED), Knee Pain (ED), RICE Therapy (ED) Prescriptions: Naproxen 500 mg PO BID PRN #30 tablet PRN Reason: Pain Referrals: [facility] [Provider Group] - 3-5 Days [facility] [Outside] - 3-5 Days [facility] [Outside] - 3-5 Days Time of Disposition: 13:43
== END 2017-03-24 13:51 | disposition home or self-care (01) ==
LOC: ED 11:14
DX: M25.561 Pain in right knee (principal); M79.89 Other specified soft tissue disorders; J45.909 Unspecified asthma, uncomplicated; F12.10 Cannabis abuse, uncomplicated; Z90.89 Acquired absence of other organs; G89.29 Other chronic pain
CPT/HCPCS: 99284

== ENCOUNTER 2017-07-02 09:22 | Emergency (ER) | payer SELFPAY ==
[2017-07-02] MEDS ORDERED: ASPIRIN PO ONE (10:01)
[2017-07-02 10:02] VITALS: BP 121/75
[2017-07-02] MEDS ORDERED: DUONEB *Not for PRN Use IH ONE (10:03)
[2017-07-02 10:15] LABS: Basophils # (Auto) 0.1 K/mm3 (0.0-0.1); Basophils % (Auto) 0.8 % (0.0-1.8); Eosinophils # (Auto) 0.3 K/mm3 (0.0-0.4); Eosinophils % (Auto) 4.1 % (0.0-4.3); Hematocrit 41.1 % (35.5-45.6); Hemoglobin 13.9 gm/dl (11.8-15.2); Lymphocytes # (Auto) 2.2 K/mm3 (1.2-5.4); Lymphocytes % (Auto) 30.9 % (13.4-35.0); Mean Corpuscular HGB Conc 34 % (32-34); Mean Corpuscular Hemoglobin 31 pg (28-32); Mean Corpuscular Volume 90 fl (84-94); Monocytes # (Auto) 0.4 K/mm3 (0.0-0.8); Monocytes % (Auto) 5.6 % (0.0-7.3); Platelet Count 289 K/mm3 (140-440); Red Blood Count 4.56 M/mm3 (3.65-5.03); Red Cell Distribution Width 14.3 % (13.2-15.2)
[2017-07-02 10:36] LABS: BUN/Creatinine Ratio 13; Blood Urea Nitrogen 12 mg/dL (9-20); Calcium 9.1 mg/dL (8.4-10.2); Hemolysis Index 12
--- NOTE | 2017-07-02 10:44 | XRay Report ---
ROUTINE CHEST, TWO VIEWS: HISTORY: chest pain. The trachea, heart, mediastinal contour, lung sylvester and bony thorax are unremarkable. IMPRESSION: Unremarkable chest x-ray.
--- NOTE | 2017-07-02 12:58 | Emergency Department Report ---
ED Chest Pain HPI - General Chief Complaint: Chest Pain Stated Complaint: CHEST PAIN, GEORGE Time Seen by Provider: 07/02/17 12:49 Source: patient Mode of arrival: Ambulatory Limitations: No Limitations - History of Present Illness Initial Comments: Patient is a 31-year-old [place] male who is presenting with shortness of breath and chest pain. Patient states that the pollen count lately has gotten to the point where he is feeling very congested cough occasional wheeze and chest tightness. Patient states that he took Benadryl last night: It sounds were improved but they did not. Patient denies any productive cough fevers nausea vomiting exertional chest pain at this time. Severity scale (0 -10): 5 Quality: tightness - Related Data Previous Rx's Medication Instructions Recorded Last Taken Type Diclofenac Dr [Adolpharechavez Dr] 75 mg PO Q12H #30 tablet 06/19/14 Unknown Rx ALBUTEROL Inhaler [ProAir HFA 2 puff IH QID PRN #1 inhalation 02/09/15 Unknown Rx Inhaler] Acetamin/Codeine 120-12Mg/5 ml 5 ml PO TID PRN #30 ml 02/09/15 Unknown Rx [Tylenol/Codeine] Azithromycin [Zithromax Z-DANETTE] 250 mg PO DAILY #1 pack 02/09/15 Unknown Rx Prednisone [predniSONE 10 mg 10 mg PO .TAPER #1 tab.ds.pk 02/09/15 Unknown Rx (6-Day Pack, 21 Tabs)] Ibuprofen [Motrin] 600 mg PO Q6H PRN #20 tablet 07/15/15 Unknown Rx methOCARBAMOL [Robaxin TAB] 500 mg PO BID PRN #14 tab 07/15/15 Unknown Rx traMADol [Ultram 50 MG tab] 50 mg PO Q6HR PRN #15 tablet 09/23/15 Unknown Rx Ketorolac [Toradol] 10 mg PO Q6H PRN #20 tablet 05/18/16 Unknown Rx Ibuprofen [Motrin 600 MG tab] 600 mg PO Q8H PRN 7 Days tablet 08/09/16 Unknown Rx Acetaminophen/Codeine [Tylenol 1 tab PO Q6H PRN #12 tab 12/09/16 Unknown Rx /Codeine # 3 tab] Amoxicillin [Trimox CAP] 500 mg PO Q8H #30 capsule 12/09/16 Unknown Rx Benzocaine [Orajel Liquid 20%] 1 ml MM Q6HR PRN #1 bottle 12/09/16 Unknown Rx Chlorhexidine Mouthwash [Peridex] 15 ml MM BID #1 bottle 12/09/16 Unknown Rx Ibuprofen [Motrin 800 MG tab] 800 mg PO Q8HR PRN #30 tablet 12/09/16 Unknown Rx Amoxicillin/Potassium Clav 1 each PO BID #20 tablet 01/08/17 Unknown Rx [Augmentin 875-125 Tablet] traMADol [Ultram] 50 mg PO Q6HR PRN #12 tablet 01/08/17 Unknown Rx Naproxen 500 mg PO BID PRN #30 tablet 03/24/17 Unknown Rx ALBUTEROL Inhaler [ProAir HFA 2 puff IH QID PRN #1 inhalation 07/02/17 Unknown Rx Inhaler] Loratadine [Claritin] 10 mg PO DAILY #30 tablet 07/02/17 Unknown Rx Prednisone [predniSONE 10 mg 10 mg PO .TAPER #1 tab.ds.pk 07/02/17 Unknown Rx (6-Day Pack, 21 Tabs)] Allergies Allergy/AdvReac Type Severity Reaction Status Date / Time No Known Allergies Allergy Verified 06/19/14 18:14 Heart Score - HEART Score History: Slightly suspicious EKG: Normal Age: < 45 Risk factors: No known risk factors Troponin: < normal limit HEART Score: 0 ED Review of Systems ROS: Stated complaint: CHEST PAIN, GEORGE Other details as noted in HPI Comment: All other systems reviewed and negative ED Past Medical Hx - Past Medical History Hx Asthma: Yes Additional medical history: chronic back pain per pt. heart palpitations - Surgical History Past Surgical History?: Yes Additional Surgical History: HERNIA REPAIR. TONSILLECTOMY AND NASAL SURGERY - Social History Smoking Status: Current Some Day Smoker Substance Use Type: None - Medications Home Medications: Home Medications Medication Instructions Recorded Confirmed Last Taken Type Diclofenac Dr [Voltaren Dr] 75 mg PO Q12H #30 tablet 06/19/14 Unknown Rx ALBUTEROL Inhaler [ProAir HFA 2 puff IH QID PRN #1 inhalation 02/09/15 Unknown Rx Inhaler] Acetamin/Codeine 120-12Mg/5 ml 5 ml PO TID PRN #30 ml 02/09/15 Unknown Rx [Tylenol/Codeine] Azithromycin [Zithromax Z-DANETTE] 250 mg PO DAILY #1 pack 02/09/15 Unknown Rx Prednisone [predniSONE 10 mg 10 mg PO .TAPER #1 tab.ds.pk 02/09/15 Unknown Rx (6-Day Pack, 21 Tabs)] Ibuprofen [Motrin] 600 mg PO Q6H PRN #20 tablet 07/15/15 Unknown Rx methOCARBAMOL [Robaxin TAB] 500 mg PO BID PRN #14 tab 07/15/15 Unknown Rx traMADol [Ultram 50 MG tab] 50 mg PO Q6HR PRN #15 tablet 09/23/15 Unknown Rx Ketorolac [Toradol] 10 mg PO Q6H PRN #20 tablet 05/18/16 Unknown Rx Ibuprofen [Motrin 600 MG tab] 600 mg PO Q8H PRN 7 Days tablet 08/09/16 Unknown Rx Acetaminophen/Codeine [Tylenol 1 tab PO Q6H PRN #12 tab 12/09/16 Unknown Rx /Codeine # 3 tab] Amoxicillin [Trimox CAP] 500 mg PO Q8H #30 capsule 12/09/16 Unknown Rx Benzocaine [Orajel Liquid 20%] 1 ml MM Q6HR PRN #1 bottle 12/09/16 Unknown Rx Chlorhexidine Mouthwash [Peridex] 15 ml MM BID #1 bottle 12/09/16 Unknown Rx Ibuprofen [Motrin 800 MG tab] 800 mg PO Q8HR PRN #30 tablet 12/09/16 Unknown Rx Amoxicillin/Potassium Clav 1 each PO BID #20 tablet 01/08/17 Unknown Rx [Augmentin 875-125 Tablet] traMADol [Ultram] 50 mg PO Q6HR PRN #12 tablet 01/08/17 Unknown Rx Naproxen 500 mg PO BID PRN #30 tablet 03/24/17 Unknown Rx ALBUTEROL Inhaler [ProAir HFA 2 puff IH QID PRN #1 inhalation 07/02/17 Unknown Rx Inhaler] Loratadine [Claritin] 10 mg PO DAILY #30 tablet 07/02/17 Unknown Rx Prednisone [predniSONE 10 mg 10 mg PO .TAPER #1 tab.ds.pk 07/02/17 Unknown Rx (6-Day Pack, 21 Tabs)] ED Physical Exam - General Limitations: No Limitations General appearance: alert, in no apparent distress - Head Head exam: Present: atraumatic, normocephalic - Eye Eye exam: Present: normal appearance - ENT ENT exam: Present: mucous membranes moist - Neck Neck exam: Present: normal inspection - Respiratory Respiratory exam: Present: normal lung sounds bilaterally. Absent: respiratory distress - Cardiovascular Cardiovascular Exam: Present: regular rate, normal rhythm. Absent: systolic murmur, diastolic murmur, rubs, gallop - GI/Abdominal GI/Abdominal exam: Present: soft, normal bowel sounds - Rectal Rectal exam: Present: deferred - Extremities Exam Extremities exam: Present: normal inspection - Back Exam Back exam: Present: normal inspection - Neurological Exam Neurological exam: Present: alert, oriented X3 - Psychiatric Psychiatric exam: Present: normal affect, normal mood - Skin Skin exam: Present: warm, dry, intact, normal color. Absent: rash ED Course Vital Signs 07/02/17 07/02/17 07/02/17 09:58 10:16 10:17 Temperature 97.2 F L Pulse Rate 68 Pulse Rate [ 66 67 Anterior Bilateral Throughout] Respiratory 16 Rate Respiratory 17 19 Rate [Anterior Bilateral Throughout] Blood Pressure 121/75 O2 Sat by Pulse 100 Oximetry HAI score - Hai Score Age > 65: (0) No Aspirin use within the Past 7 Days: (0) No 3 or more CAD Risk Factors: (0) No 2 or more Angina events in past 24 hrs: (0) No Known CAD with more than 50% Stenosis: (0) No Elevated Cardiac Markers: (0) No ST Deviation Greater than 0.5mm: (0) No HAI Score: 0 ED Medical Decision Making - Lab Data Result diagrams: 07/02/17 10:04 07/02/17 10:04 - EKG Data -: EKG Interpreted by Fl EKG shows normal: sinus rhythm, axis, intervals, QRS complexes, ST-T waves Rate: normal - EKG Data Interpretation: normal EKG - Radiology Data Radiology results: report reviewed Chest x-ray shows no acute process - Medical Decision Making Patient is a 31-year-old male who is presenting with allergic rhinitis-type symptoms with chest tightness. Patient's laboratory studies chest x-ray were all within normal limits. Patient be started on Claritin and prednisone and albuterol inhaler and be discharged home. Critical care attestation.: If time is entered above; I have spent that time in minutes in the direct care of this critically ill patient, excluding procedure time. ED Disposition Clinical Impression: Atypical chest pain Allergic rhinitis Qualifiers: Allergic rhinitis trigger: pollen Allergic rhinitis seasonality: seasonal Qualified Code(s): J30.1 - Allergic rhinitis due to pollen Disposition: DC- TO HOME OR SELFCARE Is pt being admited?: No Does the pt Need Aspirin: No Condition: Stable Instructions: Chest Pain (ED), Allergic Rhinitis (ED) Prescriptions: ALBUTEROL Inhaler [ProAir HFA Inhaler] 2 puff IH QID PRN #1 inhalation PRN Reason: Shortness Of Breath Loratadine [Claritin] 10 mg PO DAILY #30 tablet Prednisone [predniSONE 10 mg (6-Day Pack, 21 Tabs)] 10 mg PO .TAPER #1 tab.ds.pk Referrals: HOLLAND JORDAN MD [Primary Care Provider] - 3-5 Days
== END 2017-07-02 13:03 | disposition home or self-care (01) ==
LOC: ED 09:22
DX: J30.9 Allergic rhinitis, unspecified (principal); R07.89 Other chest pain; F17.200 Nicotine dependence, unspecified, uncomplicated
CPT/HCPCS: 36415; 71046; 80048; 84484; 85025; 93005; 93010; 94640; 99284

== ENCOUNTER 2017-11-12 10:44 | Emergency (ER) | payer OTHER ==
[2017-11-12 11:04] VITALS: BP 122/69
[2017-11-12] MEDS ORDERED: MOTRIN PO ONE (11:26)
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
--- NOTE | 2017-11-12 12:55 | XRay Report ---
LUMBOSACRAL SPINE, 3 VIEWS: History: Low back pain Findings: Compared to 08/09/16. There is straightening of the normal lordosis which could be related to muscular spasm. There is normal height and alignment of the lumbar vertebral bodies otherwise. No evidence for bone lesion, subluxation or compression deformity. No significant degenerative changes. Lumbarization of S1 is noted which is unchanged. Otherwise the sacrum and SI joints are within normal limits. Impression: Straightening of the normal lumbar low doses which could be secondary to spasm. No acute process. Lumbarization of S1, congenital.
== END 2017-11-12 13:18 | disposition home or self-care (01) ==
LOC: ED 10:44
DX: S39.012A Strain of muscle, fascia and tendon of lower back, initial encounter (principal); J45.909 Unspecified asthma, uncomplicated; F17.200 Nicotine dependence, unspecified, uncomplicated; V89.2XXA Person injured in unspecified motor-vehicle accident, traffic, initial encounter; Y93.89 Activity, other specified; Y92.89 Other specified places as the place of occurrence of the external cause; Y99.8 Other external cause status
CPT/HCPCS: 72100; 99283

== ENCOUNTER 2019-04-22 14:57 | Emergency (ER) | payer SELFPAY ==
--- NOTE | 2019-04-22 17:53 | Event Note ---
ED Screening Note Date of service: 04/22/19 Time: 17:52 ED Screening Note: 33 y o male presenst with slighty mid sharp chest pain with 7/10 intensity also cc of fluttering heart beat no pmh This initial assessment/diagnostic orders/clinical plan/treatment(s) is/are subject to change based on patients health status, clinical progression and re- assessment by fellow clinical providers in the ED. Further treatment and workup at subsequent clinical providers discretion. Patient/guardian urged not to elope from the ED as their condition may be serious if not clinically assessed and managed. Initial orders include: labs, ekg, acc florencio
[2019-04-22 18:32] VITALS: BP 109/62
[2019-04-22 18:57] LABS: Basophils % (Auto) 0.7 % (0.0-1.8); Eosinophils # (Auto) 0.3 K/mm3 (0.0-0.4); Eosinophils % (Auto) 3.8 % (0.0-4.3); Hematocrit 42.6 % (35.5-45.6); Hemoglobin 14.4 gm/dl (11.8-15.2); Lymphocytes # (Auto) 3.1 K/mm3 (1.2-5.4); Lymphocytes % (Auto) 46.7 % (13.4-35.0); Mean Corpuscular HGB Conc 34 % (32-34); Mean Corpuscular Volume 92 fl (84-94); Monocytes # (Auto) 0.4 K/mm3 (0.0-0.8); Monocytes % (Auto) 5.9 % (0.0-7.3); Platelet Count 325 K/mm3 (140-440); Red Blood Count 4.64 M/mm3 (3.65-5.03); Red Cell Distribution Width 13.8 % (13.2-15.2)
[2019-04-22 19:24] LABS: BUN/Creatinine Ratio 10; Blood Urea Nitrogen 10 mg/dL (9-20); Calcium 9.4 mg/dL (8.4-10.2); Hemolysis Index 7
--- NOTE | 2019-04-22 20:09 | XRay Report ---
CHEST 2 VIEWS INDICATION: palpations and chest pain. COMPARISON: 07/02/2017 FINDINGS: Support devices: None. Heart: Within normal limits. Lungs/Pleura: No acute air space or interstitial disease. No significant pleural effusion. IMPRESSION: No acute findings. Signer Name: Mino Landry MD Signed: 04/22/2019 8:04 PM Workstation Name: [email or web address]
== END 2019-04-22 21:51 | disposition home or self-care (01) ==
LOC: ED 14:57
DX: R07.89 Other chest pain (principal)
CPT/HCPCS: 36415; 71046; 80048; 85025; 93005; 93010

== ENCOUNTER 2020-03-09 09:10 | Emergency (ER) | payer SELFPAY ==
[2020-03-09 10:07] VITALS: BP 121/66
--- NOTE | 2020-03-09 13:03 | Emergency Department Report ---
ED Back Pain/Injury HPI - General Chief Complaint: Back Pain/Injury Stated Complaint: BACK PAIN Time Seen by Provider: 03/09/20 12:56 Source: patient Limitations: No Limitations - History of Present Illness MD Complaint: back pain -: Gradual Similar Symptoms Previously: Yes Place: work (Was lifting a mattress overhead trying to push it just beyond his peak and felt a pulling time pain to the right subscapular back region) Improves With: immobilization Worsens With: movement Associated Symptoms: denies: confusion, chest pain, numbness, diaphoresis, constipation, headaches, nausea/vomiting, seizure, shortness of breath - Related Data Previous Rx's Medication Instructions Recorded Last Taken Type Diclofenac Dr [Voltaren Dr] 75 mg PO Q12H #30 tablet 06/19/14 Unknown Rx Acetamin/Codeine 120-12Mg/5 ml 5 ml PO TID PRN #30 ml 02/09/15 Unknown Rx [Tylenol/Codeine] Albuterol Mdi (or & Nicu Only) 2 puff IH QID PRN #1 inhalation 02/09/15 Unknown Rx [ProAir HFA Inhaler] Azithromycin [Zithromax Z-DANETTE] 250 mg PO DAILY #1 pack 02/09/15 Unknown Rx Prednisone [predniSONE 10 mg 10 mg PO .TAPER #1 tab.ds.pk 02/09/15 Unknown Rx (6-Day Pack, 21 Tabs)] Ibuprofen [Motrin] 600 mg PO Q6H PRN #20 tablet 07/15/15 Unknown Rx methOCARBAMOL [Robaxin TAB] 500 mg PO BID PRN #14 tab 07/15/15 Unknown Rx traMADoL [Ultram 50 MG tab] 50 mg PO Q6HR PRN #15 tablet 09/23/15 Unknown Rx Ketorolac [Toradol] 10 mg PO Q6H PRN #20 tablet 05/18/16 Unknown Rx Ibuprofen [Motrin 600 MG tab] 600 mg PO Q8H PRN 7 Days tablet 08/09/16 Unknown Rx Acetaminophen/Codeine [Tylenol 1 tab PO Q6H PRN #12 tab 12/09/16 Unknown Rx /Codeine # 3 tab] Amoxicillin [Trimox CAP] 500 mg PO Q8H #30 capsule 12/09/16 Unknown Rx Benzocaine [Orajel Liquid 20%] 1 ml MM Q6HR PRN #1 bottle 12/09/16 Unknown Rx Chlorhexidine Mouthwash [Peridex] 15 ml MM BID #1 bottle 12/09/16 Unknown Rx Ibuprofen [Motrin 800 MG tab] 800 mg PO Q8HR PRN #30 tablet 12/09/16 Unknown Rx Amoxicillin/Potassium Clav 1 each PO BID #20 tablet 01/08/17 Unknown Rx [Augmentin 875-125 Tablet] traMADoL [Ultram] 50 mg PO Q6HR PRN #12 tablet 01/08/17 Unknown Rx Naproxen 500 mg PO BID PRN #30 tablet 03/24/17 Unknown Rx Albuterol Mdi (or & Nicu Only) 2 puff IH QID PRN #1 inhalation 07/02/17 Unknown Rx [ProAir HFA Inhaler] Loratadine (Nf) [Claritin] 10 mg PO DAILY #30 tablet 07/02/17 Unknown Rx Prednisone [predniSONE 10 mg 10 mg PO .TAPER #1 tab.ds.pk 07/02/17 Unknown Rx (6-Day Pack, 21 Tabs)] Cyclobenzaprine [Flexeril] 10 mg PO QHS PRN #10 tablet 11/12/17 Unknown Rx Ibuprofen [Motrin] 600 mg PO Q8H PRN #30 tablet 11/12/17 Unknown Rx Ketorolac [Toradol] 10 mg PO Q6H PRN #14 tablet 04/22/19 Unknown Rx Ketorolac [Toradol] 10 mg PO Q6H PRN #14 tablet 03/09/20 Unknown Rx methOCARBAMOL [Robaxin TAB] 750 mg PO Q8H PRN #14 tablet 03/09/20 Unknown Rx Allergies Allergy/AdvReac Type Severity Reaction Status Date / Time No Known Allergies Allergy Verified 11/12/17 11:02 ED Review of Systems ROS: Stated complaint: BACK PAIN Other details as noted in HPI Comment: All other systems reviewed and negative ED Past Medical Hx - Past Medical History Previous Medical History?: Yes Hx Asthma: Yes Additional medical history: chronic back pain per pt. heart palpitations - Surgical History Past Surgical History?: Yes Additional Surgical History: HERNIA REPAIR. TONSILLECTOMY AND NASAL SURGERY - Social History Smoking Status: Never Smoker Substance Use Type: None - Medications Home Medications: Home Medications Medication Instructions Recorded Confirmed Last Taken Type Diclofenac Dr [Braydon Pelaez] 75 mg PO Q12H #30 tablet 06/19/14 Unknown Rx Acetamin/Codeine 120-12Mg/5 ml 5 ml PO TID PRN #30 ml 02/09/15 Unknown Rx [Tylenol/Codeine] Albuterol Mdi (or & Nicu Only) 2 puff IH QID PRN #1 inhalation 02/09/15 Unknown Rx [ProAir HFA Inhaler] Azithromycin [Zithromax Z-DANETTE] 250 mg PO DAILY #1 pack 02/09/15 Unknown Rx Prednisone [predniSONE 10 mg 10 mg PO .TAPER #1 tab.ds.pk 02/09/15 Unknown Rx (6-Day Pack, 21 Tabs)] Ibuprofen [Motrin] 600 mg PO Q6H PRN #20 tablet 07/15/15 Unknown Rx methOCARBAMOL [Robaxin TAB] 500 mg PO BID PRN #14 tab 07/15/15 Unknown Rx traMADoL [Ultram 50 MG tab] 50 mg PO Q6HR PRN #15 tablet 09/23/15 Unknown Rx Ketorolac [Toradol] 10 mg PO Q6H PRN #20 tablet 05/18/16 Unknown Rx Ibuprofen [Motrin 600 MG tab] 600 mg PO Q8H PRN 7 Days tablet 08/09/16 Unknown Rx Acetaminophen/Codeine [Tylenol 1 tab PO Q6H PRN #12 tab 12/09/16 Unknown Rx /Codeine # 3 tab] Amoxicillin [Trimox CAP] 500 mg PO Q8H #30 capsule 12/09/16 Unknown Rx Benzocaine [Orajel Liquid 20%] 1 ml MM Q6HR PRN #1 bottle 12/09/16 Unknown Rx Chlorhexidine Mouthwash [Peridex] 15 ml MM BID #1 bottle 12/09/16 Unknown Rx Ibuprofen [Motrin 800 MG tab] 800 mg PO Q8HR PRN #30 tablet 12/09/16 Unknown Rx Amoxicillin/Potassium Clav 1 each PO BID #20 tablet 01/08/17 Unknown Rx [Augmentin 875-125 Tablet] traMADoL [Ultram] 50 mg PO Q6HR PRN #12 tablet 01/08/17 Unknown Rx Naproxen 500 mg PO BID PRN #30 tablet 03/24/17 Unknown Rx Albuterol Mdi (or & Nicu Only) 2 puff IH QID PRN #1 inhalation 07/02/17 Unknown Rx [ProAir HFA Inhaler] Loratadine (Nf) [Claritin] 10 mg PO DAILY #30 tablet 07/02/17 Unknown Rx Prednisone [predniSONE 10 mg 10 mg PO .TAPER #1 tab.ds.pk 07/02/17 Unknown Rx (6-Day Pack, 21 Tabs)] Cyclobenzaprine [Flexeril] 10 mg PO QHS PRN #10 tablet 11/12/17 Unknown Rx Ibuprofen [Motrin] 600 mg PO Q8H PRN #30 tablet 11/12/17 Unknown Rx Ketorolac [Toradol] 10 mg PO Q6H PRN #14 tablet 04/22/19 Unknown Rx Ketorolac [Toradol] 10 mg PO Q6H PRN #14 tablet 03/09/20 Unknown Rx methOCARBAMOL [Robaxin TAB] 750 mg PO Q8H PRN #14 tablet 03/09/20 Unknown Rx ED Physical Exam - General Limitations: No Limitations General appearance: alert, in no apparent distress - Head Head exam: Present: atraumatic, normocephalic - Eye Eye exam: Present: normal appearance - ENT ENT exam: Present: mucous membranes moist - Neck Neck exam: Present: normal inspection - Respiratory Respiratory exam: Present: normal lung sounds bilaterally. Absent: respiratory distress - Cardiovascular Cardiovascular Exam: Present: regular rate, normal rhythm. Absent: systolic murmur, diastolic murmur, rubs, gallop - GI/Abdominal GI/Abdominal exam: Present: soft, normal bowel sounds - Rectal Rectal exam: Present: deferred - Extremities Exam Extremities exam: Present: normal inspection - Back Exam Back exam: Present: normal inspection - Neurological Exam Neurological exam: Present: alert, oriented X3 - Psychiatric Psychiatric exam: Present: normal affect, normal mood - Skin Skin exam: Present: warm, dry, intact, normal color. Absent: rash ED Course Vital Signs 03/09/20 10:06 Temperature 98.0 F Pulse Rate 67 Respiratory 18 Rate Blood Pressure 121/66 O2 Sat by Pulse 100 Oximetry ED Medical Decision Making - Medical Decision Making Pt presents the emergency department complaining of back pain most consistent with musculoskeletal back pain back Pain Most Consistent with Strain/Contusion. Differential Diagnosis Includes Lumbar Go Versus Musculoskeletal Spasm, Strain Versus Sciatica. No Back Pain Red Flags on History or Physical. Presentation Not Consistent with Malignancy, Fracture, Cauda Equina, Abdominal Aortic Aneurysm, Viscus Perforation, Pulmonary Embolism, Renal Colic, Pyelonephritis. Patient reports no B symptoms, trauma trauma, incontinence, saddle anesthesia, distal weakness, urinary symptoms and is a febrile. Critical care attestation.: If time is entered above; I have spent that time in minutes in the direct care of this critically ill patient, excluding procedure time. ED Disposition Clinical Impression: Back strain Disposition: DC-01 TO HOME OR SELFCARE Is pt being admited?: No Does the pt Need Aspirin: No Condition: Stable Instructions: How to Use Cold Therapy, [id number], Muscle Strain, [id number] Prescriptions: methOCARBAMOL [Robaxin TAB] 750 mg PO Q8H PRN #14 tablet PRN Reason: back pain /stiffness Ketorolac [Toradol] 10 mg PO Q6H PRN #14 tablet PRN Reason: Pain Referrals: PRIMARY CARE,MD [Primary Care Provider] - 3-5 Days JON YO MD [Staff Physician] - 3-5 Days
== END 2020-03-09 13:00 | disposition home or self-care (01) ==
LOC: ED 09:10
DX: S39.012A Strain of muscle, fascia and tendon of lower back, initial encounter (principal); J45.909 Unspecified asthma, uncomplicated; Z79.899 Other long term (current) drug therapy; Z98.890 Other specified postprocedural states; X58.XXXA Exposure to other specified factors, initial encounter; Y93.89 Activity, other specified; Y92.89 Other specified places as the place of occurrence of the external cause; Y99.0 Civilian activity done for income or pay
CPT/HCPCS: 99282

== ENCOUNTER 2021-05-31 15:45 | Emergency (ER) | payer SELFPAY ==
[2021-05-31 15:58] VITALS: BP 129/70
--- NOTE | 2021-05-31 16:15 | Emergency Department Report ---
ED Chest Pain HPI - General Chief Complaint: Arrhythmia/Palpitations Stated Complaint: HEART PALPITATIONS Time Seen by Provider: 05/31/21 16:10 Source: patient Mode of arrival: Ambulatory Limitations: No Limitations - History of Present Illness Initial Comments: 35-year-old -[place] male presents to the emergency department with a complaint of palpitations that have been going on for "years" intermittently. Sometimes these palpitations are associated with some left-sided chest pain and shortness of breath. When asked if the palpitations are a feeling of a fast heart rate versus a regular rate or skipping beats versus a pounding heart, the patient says "all of that." The patient says that he has seen cardiology and used a Holter monitor about 5 years ago and was told that they did not find anything but that he should avoid anything too strenuous that raises his heart rate. He has a past medical history of asthma. He occasionally will smoke cigarettes or marijuana. No recent travel or sick contacts at home. He denies any fever, cough, lower extremity swelling. - Related Data Previous Rx's Medication Instructions Recorded Last Taken Type Diclofenac Dr [Braydon Pelaez] 75 mg PO Q12H #30 tablet 06/19/14 Unknown Rx Acetamin/Codeine 120-12Mg/5 ml 5 ml PO TID PRN #30 ml 02/09/15 Unknown Rx [Tylenol/Codeine] Albuterol Mdi (or & Nicu Only) 2 puff IH QID PRN #1 inhalation 02/09/15 Unknown Rx [ProAir HFA Inhaler] Azithromycin [Zithromax Z-DANETTE] 250 mg PO DAILY #1 pack 02/09/15 Unknown Rx Prednisone [predniSONE 10 mg 10 mg PO .TAPER #1 tab.ds.pk 02/09/15 Unknown Rx (6-Day Pack, 21 Tabs)] Ibuprofen [Motrin] 600 mg PO Q6H PRN #20 tablet 07/15/15 Unknown Rx methOCARBAMOL [Robaxin TAB] 500 mg PO BID PRN #14 tab 07/15/15 Unknown Rx traMADoL [Ultram 50 MG tab] 50 mg PO Q6HR PRN #15 tablet 09/23/15 Unknown Rx Ketorolac [Toradol] 10 mg PO Q6H PRN #20 tablet 05/18/16 Unknown Rx Ibuprofen [Motrin 600 MG tab] 600 mg PO Q8H PRN 7 Days tablet 08/09/16 Unknown Rx Acetaminophen/Codeine [Tylenol 1 tab PO Q6H PRN #12 tab 12/09/16 Unknown Rx /Codeine # 3 tab] Amoxicillin [Trimox CAP] 500 mg PO Q8H #30 capsule 12/09/16 Unknown Rx Benzocaine [Orajel Liquid 20%] 1 ml MM Q6HR PRN #1 bottle 12/09/16 Unknown Rx Chlorhexidine Mouthwash [Peridex] 15 ml MM BID #1 bottle 12/09/16 Unknown Rx Ibuprofen [Motrin 800 MG tab] 800 mg PO Q8HR PRN #30 tablet 12/09/16 Unknown Rx Amoxicillin/Potassium Clav 1 each PO BID #20 tablet 01/08/17 Unknown Rx [Augmentin 875-125 Tablet] traMADoL [Ultram] 50 mg PO Q6HR PRN #12 tablet 01/08/17 Unknown Rx Naproxen 500 mg PO BID PRN #30 tablet 03/24/17 Unknown Rx Albuterol Mdi (or & Nicu Only) 2 puff IH QID PRN #1 inhalation 07/02/17 Unknown Rx [ProAir HFA Inhaler] Loratadine (Nf) [Claritin] 10 mg PO DAILY #30 tablet 07/02/17 Unknown Rx Prednisone [predniSONE 10 mg 10 mg PO .TAPER #1 tab.ds.pk 07/02/17 Unknown Rx (6-Day Pack, 21 Tabs)] Cyclobenzaprine [Flexeril] 10 mg PO QHS PRN #10 tablet 11/12/17 Unknown Rx Ibuprofen [Motrin] 600 mg PO Q8H PRN #30 tablet 11/12/17 Unknown Rx Ketorolac [Toradol] 10 mg PO Q6H PRN #14 tablet 04/22/19 Unknown Rx Ketorolac [Toradol] 10 mg PO Q6H PRN #14 tablet 03/09/20 Unknown Rx methOCARBAMOL [Robaxin TAB] 750 mg PO Q8H PRN #14 tablet 03/09/20 Unknown Rx Allergies Allergy/AdvReac Type Severity Reaction Status Date / Time No Known Allergies Allergy Verified 11/12/17 11:02 Heart Score - HEART Score History: Slightly suspicious EKG: Normal Age: < 45 Risk factors: 1-2 risk factors Troponin: < normal limit HEART Score: 1 - EKG Read Time Time EKG Completed: 16:01 EKG Read Time: 16:02 ED Review of Systems ROS: Stated complaint: HEART PALPITATIONS Other details as noted in HPI Comment: All other systems reviewed and negative Constitutional: denies: chills, fever Eyes: denies: eye pain, vision change ENT: denies: ear pain, throat pain Respiratory: shortness of breath (Intermittent). denies: cough Cardiovascular: chest pain (Intermittent), palpitations Gastrointestinal: denies: abdominal pain, vomiting Genitourinary: denies: dysuria, discharge Musculoskeletal: denies: back pain, arthralgia Skin: denies: rash, lesions Neurological: denies: headache, weakness ED Past Medical Hx - Past Medical History Hx Asthma: Yes Additional medical history: chronic back pain per pt. heart palpitations - Surgical History Additional Surgical History: HERNIA REPAIR. TONSILLECTOMY AND NASAL SURGERY - Social History Smoking Status: Never Smoker Substance Use Type: None - Medications Home Medications: Home Medications Medication Instructions Recorded Confirmed Last Taken Type Diclofenac Dr [Braydon Pelaez] 75 mg PO Q12H #30 tablet 06/19/14 Unknown Rx Acetamin/Codeine 120-12Mg/5 ml 5 ml PO TID PRN #30 ml 02/09/15 Unknown Rx [Tylenol/Codeine] Albuterol Mdi (or & Nicu Only) 2 puff IH QID PRN #1 inhalation 02/09/15 Unknown Rx [ProAir HFA Inhaler] Azithromycin [Zithromax Z-DANETTE] 250 mg PO DAILY #1 pack 02/09/15 Unknown Rx Prednisone [predniSONE 10 mg 10 mg PO .TAPER #1 tab.ds.pk 02/09/15 Unknown Rx (6-Day Pack, 21 Tabs)] Ibuprofen [Motrin] 600 mg PO Q6H PRN #20 tablet 07/15/15 Unknown Rx methOCARBAMOL [Robaxin TAB] 500 mg PO BID PRN #14 tab 07/15/15 Unknown Rx traMADoL [Ultram 50 MG tab] 50 mg PO Q6HR PRN #15 tablet 09/23/15 Unknown Rx Ketorolac [Toradol] 10 mg PO Q6H PRN #20 tablet 05/18/16 Unknown Rx Ibuprofen [Motrin 600 MG tab] 600 mg PO Q8H PRN 7 Days tablet 08/09/16 Unknown Rx Acetaminophen/Codeine [Tylenol 1 tab PO Q6H PRN #12 tab 12/09/16 Unknown Rx /Codeine # 3 tab] Amoxicillin [Trimox CAP] 500 mg PO Q8H #30 capsule 12/09/16 Unknown Rx Benzocaine [Orajel Liquid 20%] 1 ml MM Q6HR PRN #1 bottle 12/09/16 Unknown Rx Chlorhexidine Mouthwash [Peridex] 15 ml MM BID #1 bottle 12/09/16 Unknown Rx Ibuprofen [Motrin 800 MG tab] 800 mg PO Q8HR PRN #30 tablet 12/09/16 Unknown Rx Amoxicillin/Potassium Clav 1 each PO BID #20 tablet 01/08/17 Unknown Rx [Augmentin 875-125 Tablet] traMADoL [Ultram] 50 mg PO Q6HR PRN #12 tablet 01/08/17 Unknown Rx Naproxen 500 mg PO BID PRN #30 tablet 03/24/17 Unknown Rx Albuterol Mdi (or & Nicu Only) 2 puff IH QID PRN #1 inhalation 07/02/17 Unknown Rx [ProAir HFA Inhaler] Loratadine (Nf) [Claritin] 10 mg PO DAILY #30 tablet 07/02/17 Unknown Rx Prednisone [predniSONE 10 mg 10 mg PO .TAPER #1 tab.ds.pk 07/02/17 Unknown Rx (6-Day Pack, 21 Tabs)] Cyclobenzaprine [Flexeril] 10 mg PO QHS PRN #10 tablet 11/12/17 Unknown Rx Ibuprofen [Motrin] 600 mg PO Q8H PRN #30 tablet 11/12/17 Unknown Rx Ketorolac [Toradol] 10 mg PO Q6H PRN #14 tablet 04/22/19 Unknown Rx Ketorolac [Toradol] 10 mg PO Q6H PRN #14 tablet 03/09/20 Unknown Rx methOCARBAMOL [Robaxin TAB] 750 mg PO Q8H PRN #14 tablet 03/09/20 Unknown Rx ED Physical Exam - General Limitations: No Limitations - Other Other exam information: GENERAL: The patient is well-developed well-nourished. HENT: Normocephalic. Atraumatic. Patient has moist mucous membranes. EYES: Extraocular motions are intact. NECK: Supple. Trachea is midline. CHEST/LUNGS: Clear to auscultation. There is no respiratory distress noted. HEART/CARDIOVASCULAR: Regular. There is no tachycardia. There is no murmur. ABDOMEN: Abdomen is soft, nontender. Patient has normal bowel sounds. There is no abdominal distention. SKIN: Skin is warm and dry. NEURO: The patient is awake, alert, and oriented. The patient is cooperative. The patient has no focal neurologic deficits. Normal speech. MUSCULOSKELETAL: There is no tenderness or deformity. There is no limitation range of motion. ED Course Vital Signs 05/31/21 15:56 Temperature 98.8 F Pulse Rate 85 Respiratory 16 Rate Blood Pressure 129/70 [Left] O2 Sat by Pulse 100 Oximetry HAI score - Hai Score Age > 65: (0) No Aspirin use within the Past 7 Days: (0) No 3 or more CAD Risk Factors: (0) No 2 or more Angina events in past 24 hrs: (0) No Known CAD with more than 50% Stenosis: (0) No Elevated Cardiac Markers: (0) No ST Deviation Greater than 0.5mm: (0) No HAI Score: 0 ED Medical Decision Making - Lab Data Result diagrams: 05/31/21 16:16 05/31/21 16:16 Lab Results 05/31/21 05/31/21 05/31/21 Range/Units 16:16 16:16 16:16 WBC 8.1 (4.5-11.0) K/mm3 RBC 4.48 (3.65-5.03) M/mm3 Hgb 13.9 (11.8-15.2) gm/dl Hct 41.7 (35.5-45.6) % MCV 93 (84-94) fl MCH 31 (28-32) pg MCHC 33 (32-34) % RDW 13.8 (13.2-15.2) % Plt Count 330 (140-440) K/mm3 Lymph % (Auto) 32.9 (13.4-35.0) % [place] % (Auto) 4.4 (0.0-7.3) % Eos % (Auto) 1.2 (0.0-4.3) % Baso % (Auto) 0.4 (0.0-1.8) % Lymph # (Auto) 2.7 (1.2-5.4) K/mm3 [place] # (Auto) 0.4 (0.0-0.8) K/mm3 Eos # (Auto) 0.1 (0.0-0.4) K/mm3 Baso # (Auto) 0.0 (0.0-0.1) K/mm3 Seg Neutrophils % 61.1 (40.0-70.0) % Seg Neutrophils # 5.0 (1.8-7.7) K/mm3 Sodium 137 (137-145) mmol/L Potassium 4.2 (3.6-5.0) mmol/L Chloride 101.9 (98-107) mmol/L Carbon Dioxide 24 (22-30) mmol/L Anion Gap 15 mmol/L BUN 11 (9-20) mg/dL Creatinine 1.0 (0.8-1.3) mg/dL Estimated GFR > 60 ml/min BUN/Creatinine Ratio 11 % Glucose 97 (75-100) mg/dL Calcium 8.8 (8.4-10.2) mg/dL Total Bilirubin 0.40 (0.1-1.2) mg/dL AST 18 (5-40) units/L ALT 21 (7-56) units/L Alkaline Phosphatase 89 (35-129) units/L Troponin T < 0.010 (0.00-0.029) ng/mL Total Protein 7.6 (6.3-8.2) g/dL Albumin 4.3 (3.9-5) g/dL Albumin/Globulin Ratio 1.3 % TSH 0.481 (0.270-4.200) mlU/mL - EKG Data -: EKG Interpreted by Me (At 1602) EKG shows normal: sinus rhythm, axis, intervals, QRS complexes, ST-T waves Rate: normal - EKG Data When compared to previous EKG there are: no significant change Interpretation: unchanged when compared t (04/22/19) - Radiology Data Radiology results: image reviewed interpreted by me: Chest x-ray does not show any acute process. There are no pleural effusions, obvious pneumonia and there is no pneumothorax. - Medical Decision Making This 35-year-old male presents with recurrent palpitations, and intermittent shortness of breath and chest discomfort. On examination heart and lung sounds are normal to auscultation and the patient does not appear in any respiratory or acute distress. EKG does not have any morphology consistent with ST elevation myocardial infarction or any arrhythmia. Labs have been unremarkable including CBC, metabolic panel, negative troponin and normal thyroid function. The patient is low on the heart and HAI score. He is low on the Wells score criteria and negative on the pulmonary embolism rule out criteria. Vital signs have been reassuring throughout his ED course including being afebrile. For all these reasons the patient appears safe for discharge home at this time. He has been instructed to follow-up with primary care and has been given an outpatient referral for cardiology. Critical Care Time: No Critical care attestation.: If time is entered above; I have spent that time in minutes in the direct care of this critically ill patient, excluding procedure time. ED Disposition Clinical Impression: Palpitations Disposition: 01 HOME / SELF CARE / HOMELESS Is pt being admited?: No Condition: Stable Instructions: Palpitations Additional Instructions: Please follow with a primary care physician and switch inspector. In the next few days. I have given you a referral for a local switch inspector, Dr. Alfaro, to follow-up regarding your palpitations. Try to avoid any excessive caffeine use. Try to get 8 hours of uninterrupted sleep at night. Return to the emergency department with any worsening of your symptoms, new or concerning symptoms not addressed during this current emergency department visit, or with any acute distress. Referrals: MADHAV ALFARO MD [Staff Physician] - 2-3 Days Time of Disposition: 17:23
--- NOTE | 2021-05-31 16:33 | XRay Report ---
CHEST 2 VIEWS INDICATION / CLINICAL INFORMATION: CP. COMPARISON: 04/22/2019 FINDINGS: SUPPORT DEVICES: None. HEART / MEDIASTINUM: No significant abnormality. LUNGS / PLEURA: No significant pulmonary or pleural abnormality. No pneumothorax. ADDITIONAL FINDINGS: No significant additional findings. IMPRESSION: 1. No acute findings. Signer Name: Maxime Cobos MD Signed: 05/31/2021 4:29 PM Workstation Name: [id number]
[2021-05-31 16:41] LABS: Basophils % (Auto) 0.4 % (0.0-1.8); Eosinophils # (Auto) 0.1 K/mm3 (0.0-0.4); Eosinophils % (Auto) 1.2 % (0.0-4.3); Hematocrit 41.7 % (35.5-45.6); Hemoglobin 13.9 gm/dl (11.8-15.2); Lymphocytes # (Auto) 2.7 K/mm3 (1.2-5.4); Lymphocytes % (Auto) 32.9 % (13.4-35.0); Mean Corpuscular HGB Conc 33 % (32-34); Mean Corpuscular Volume 93 fl (84-94); Monocytes # (Auto) 0.4 K/mm3 (0.0-0.8); Monocytes % (Auto) 4.4 % (0.0-7.3); Platelet Count 330 K/mm3 (140-440); Red Blood Count 4.48 M/mm3 (3.65-5.03); Red Cell Distribution Width 13.8 % (13.2-15.2)
[2021-05-31 17:01] LABS: Alanine Aminotransferase 21 units/L (7-56); Albumin 4.3 g/dL (3.9-5); BUN/Creatinine Ratio 11; Blood Urea Nitrogen 11 mg/dL (9-20); Calcium 8.8 mg/dL (8.4-10.2); Hemolysis Index 15
--- NOTE | 2021-06-02 13:12 | Electrocardiograph Report ---
[facility] Test Date: 2021-05-31 Test Time: 16:01:26 Pat Name: PAM MEDEROS Department: Room: Gender: M Banking Services Clerk: LONA : 1985 Requested By: VIVEK SIMPSON Order Number: [id number] Reading MD: Mary Bernal Measurements Intervals [place] Rate: 83 P: 76 NV: 161 QRS: 61 QRSD: 95 T: 21 QT: 374 QTc: 440 Interpretive Statements Sinus rhythm No previous ECG available for comparison Electronically Signed On 06-02-2021 13:11:48 EST by Mary Bernal
== END 2021-05-31 17:49 | disposition home or self-care (01) ==
LOC: ED 15:45
DX: R00.2 Palpitations (principal); J45.909 Unspecified asthma, uncomplicated
CPT/HCPCS: 36415; 71046; 80053; 84443; 84484; 85025; 93005; 93010; 99283

== ENCOUNTER 2021-07-11 14:17 | Emergency (ER) | payer SELFPAY ==
--- NOTE | 2021-07-11 18:26 | Emergency Department Report ---
HPI - General Chief Complaint: Chest Pain Time Seen by Provider: 07/11/21 18:15 - HPI HPI: For the last several days the patient has been experiencing a pain on his entire left side of the chest neck and left upper extremity. He denies any injuries but it happened 1 day when he got up. He denies any numbness tingling but does report sharp moderate chest pain worse whenever he moves his left upper extremity. He denies weakness. Movement makes it worse and staying still makes it better. The pain is moderate and sharp. ED Past Medical Hx - Past Medical History Previous Medical History?: Yes Hx Asthma: Yes Additional medical history: chronic back pain per pt. heart palpitations - Surgical History Additional Surgical History: HERNIA REPAIR. TONSILLECTOMY AND NASAL SURGERY - Social History Smoking Status: Never Smoker Substance Use Type: None - Medications Home Medications: Home Medications Medication Instructions Recorded Confirmed Last Taken Type Diclofenac Dr [Voltaren Dr] 75 mg PO Q12H #30 tablet 06/19/14 Unknown Rx Acetamin/Codeine 120-12Mg/5 ml 5 ml PO TID PRN #30 ml 02/09/15 Unknown Rx [Tylenol/Codeine] Albuterol Mdi (or & Nicu Only) 2 puff IH QID PRN #1 inhalation 02/09/15 Unknown Rx [ProAir HFA Inhaler] Azithromycin [Zithromax Z-DANETTE] 250 mg PO DAILY #1 pack 02/09/15 Unknown Rx Prednisone [predniSONE 10 mg 10 mg PO .TAPER #1 tab.ds.pk 02/09/15 Unknown Rx (6-Day Pack, 21 Tabs)] Ibuprofen [Motrin] 600 mg PO Q6H PRN #20 tablet 07/15/15 Unknown Rx methOCARBAMOL [Robaxin TAB] 500 mg PO BID PRN #14 tab 07/15/15 Unknown Rx traMADoL [Ultram 50 MG tab] 50 mg PO Q6HR PRN #15 tablet 09/23/15 Unknown Rx Ketorolac [Toradol] 10 mg PO Q6H PRN #20 tablet 05/18/16 Unknown Rx Ibuprofen [Motrin 600 MG tab] 600 mg PO Q8H PRN 7 Days tablet 08/09/16 Unknown Rx Acetaminophen/Codeine [Tylenol 1 tab PO Q6H PRN #12 tab 12/09/16 Unknown Rx /Codeine # 3 tab] Amoxicillin [Trimox CAP] 500 mg PO Q8H #30 capsule 12/09/16 Unknown Rx Benzocaine [Orajel Liquid 20%] 1 ml MM Q6HR PRN #1 bottle 12/09/16 Unknown Rx Chlorhexidine Mouthwash [Peridex] 15 ml MM BID #1 bottle 12/09/16 Unknown Rx Ibuprofen [Motrin 800 MG tab] 800 mg PO Q8HR PRN #30 tablet 12/09/16 Unknown Rx Amoxicillin/Potassium Clav 1 each PO BID #20 tablet 01/08/17 Unknown Rx [Augmentin 875-125 Tablet] traMADoL [Ultram] 50 mg PO Q6HR PRN #12 tablet 01/08/17 Unknown Rx Naproxen 500 mg PO BID PRN #30 tablet 03/24/17 Unknown Rx Albuterol Mdi (or & Nicu Only) 2 puff IH QID PRN #1 inhalation 07/02/17 Unknown Rx [ProAir HFA Inhaler] Loratadine (Nf) [Claritin] 10 mg PO DAILY #30 tablet 07/02/17 Unknown Rx Prednisone [predniSONE 10 mg 10 mg PO .TAPER #1 tab.ds.pk 07/02/17 Unknown Rx (6-Day Pack, 21 Tabs)] Cyclobenzaprine [Flexeril] 10 mg PO QHS PRN #10 tablet 11/12/17 Unknown Rx Ibuprofen [Motrin] 600 mg PO Q8H PRN #30 tablet 11/12/17 Unknown Rx Ketorolac [Toradol] 10 mg PO Q6H PRN #14 tablet 04/22/19 Unknown Rx Ketorolac [Toradol] 10 mg PO Q6H PRN #14 tablet 03/09/20 Unknown Rx methOCARBAMOL [Robaxin TAB] 750 mg PO Q8H PRN #14 tablet 03/09/20 Unknown Rx Ibuprofen [Motrin] 800 mg PO Q8HR #30 tablet 07/11/21 Unknown Rx ED Review of Systems ROS: Stated complaint: CHEST PAIN/DIFFICULTY BREATHING Other details as noted in HPI Comment: All other systems reviewed and negative Physical Exam - Physical Exam Vital Signs: Vital Signs 07/11/21 14:39 Temperature 97.8 F Pulse Rate 73 Respiratory 18 Rate Blood Pressure 113/67 [Right] O2 Sat by Pulse 99 Oximetry Physical Exam: Physical Exam: Constitutional: AAOX3. No acute distress. No diaphoresis. HENT: Normocephalic. Pupils equal and reactive. No throat edema or erythema. Neck: No neck rigidity or tenderness. Cardiovascular: Heart sounds: No murmur. Normal rate and regular rhythm. Pulses: Intact distal pulses. Lungs: No wheezing or rales. Chest wall: No tenderness. Abdominal: No distension. No mass/pulsatile mass. No abdominal tenderness, guarding nor rebound. Musculoskeletal: Normal range of motion. No edema, No calf TTP. The patient has diffuse tenderness to palpation to the left trapezius muscle as well as the anterior chest wall and left upper extremity. This reproduces his pain. He is got intact pulses on the left upper extremity. Skin: Warm and dry. Neurological: Alert and oriented to person, place, and time. Psychiatric: Mood and affect normal. Normal cognition and memory. Normal judgement. ED Course Vital Signs 07/11/21 14:39 Temperature 97.8 F Pulse Rate 73 Respiratory 18 Rate Blood Pressure 113/67 [Right] O2 Sat by Pulse 99 Oximetry Critical care attestation.: If time is entered above; I have spent that time in minutes in the direct care of this critically ill patient, excluding procedure time. ED Disposition Clinical Impression: Muscular pain Disposition: 01 HOME / SELF CARE / HOMELESS Is pt being admited?: No Does the pt Need Aspirin: No Condition: Stable Prescriptions: Ibuprofen [Motrin] 800 mg PO Q8HR #30 tablet Time of Disposition: 18:30 Print Language: FRISIAN
[2021-07-11 18:40] VITALS: BP 114/81
--- NOTE | 2021-07-14 19:48 | Electrocardiograph Report ---
[facility] Test Date: 2021-07-11 Test Time: 15:07:15 Pat Name: PAM MEDEROS JR Department: Room: Gender: M It Service Manager: MAX : [id number] Requested By: MANUEL SCHULTZ Order Number: [id number] Reading MD: Mary Bernal Measurements Intervals [place] Rate: 63 P: 54 VT: 158 QRS: 64 QRSD: 86 T: 30 QT: 407 QTc: 418 Interpretive Statements Sinus rhythm Compared to ECG 05/31/2021 16:01:26 No significant changes Electronically Signed On 07-14-2021 19:48:39 EDT by Mary Bernal
== END 2021-07-12 07:49 | disposition home or self-care (01) ==
LOC: ED 14:17
DX: M79.18 Myalgia, other site (principal); R07.89 Other chest pain; J45.909 Unspecified asthma, uncomplicated; G89.29 Other chronic pain; Z90.89 Acquired absence of other organs
CPT/HCPCS: 93005; 99282

== ENCOUNTER 2021-09-21 18:57 | Emergency (ER) | payer SELFPAY ==
[2021-09-21 20:20] VITALS: BP 121/68
== END 2021-09-23 09:05 | disposition left against medical advice (07) ==
LOC: ED 18:57
DX: M54.2 Cervicalgia (principal); Z53.21 Procedure and treatment not carried out due to patient leaving prior to being seen by health care provider